=== PATIENT | male | born 1935 | race Caucasian/White ===

== ENCOUNTER 2018-10-19 07:33 | Day surgery (SDC) | payer OTHER ==
[2018-10-19] MEDS ORDERED: Ringers Lactate 1,000 ML IV ONE (08:03)
[2018-10-19] MEDS ORDERED: LIDOCAINE 1% MPF 5 ML VIAL ONE (09:20)
[2018-10-19] MEDS ORDERED: PROPOFOL 200 MG/20 ML VIAL IV ONE ×2 (09:20)
[2018-10-19] MEDS ORDERED: GLYCOPYRROLATE 0.2 MG/ML SYR ONE (09:20)
--- NOTE | 2018-10-19 09:56 | ENDO RPT ---
[address], [address] COLONOSCOPY PROCEDURE REPORT EXAM DATE: 10/19/2018 PATIENT NAME: Ricki Waterman MR #: [id number] BIRTHDATE: 1935 ATTENDING: Curtis Montes DR STATUS: outpatient FORENSIC INVESTIGATOR: Machelle Pryor RN, Josef Masterson [facility], and Sony Go RN INDICATIONS: The patient is a 82 yr old Male here for a colonoscopy due to history of colon cancer PROCEDURE PERFORMED: Colonoscopy with biopsy - cold polypectomy MEDICATIONS: Per Anesthesia. ESTIMATED BLOOD LOSS: None CONSENT: The patient understands the risks and benefits of the procedure and understands that these risks include, but are not limited to: sedation, allergic reaction, infection, perforation and/or bleeding. Alternative means of evaluation and treatment include, among others: physical exam, x-rays, and/or surgical intervention. The patient elects to proceed with this endoscopic procedure. DESCRIPTION OF PROCEDURE: During intra-op preparation period all mechanical medical equipment was checked for proper function. Hand hygiene and appropriate measures for infection prevention was taken. Procedure, possible complications, alternatives including, but not limited to possibility of bleeding, perforation, tear, infection, sepsis, need for surgery, need for blood transfusion, were explained to the patient. After the risks, benefits and alternatives of the procedure were thoroughly explained, Informed consent was verified, confirmed and timeout was successfully executed by the treatment team. The patient was placed in the left lateral position. A digital rectal exam was performed and revealed an enlarged prostate, A digital rectal exam was performed and revealed a nodule prostate, A digital rectal exam was performed and revealed a tender prostate, A digital rectal exam was performed and revealed increased firmness of the prostate, and A digital rectal exam was performed and revealed internal hemorrhoids. After appropriate level of anesthesia, the scope was passed. The EC-[id number] ([id number]) endoscope was introduced through the anus and advanced to the distal transverse colon / Small bowel anastamosis. There were 2 lumens consistent with a side to side anastamosis of the small bowel to colon with what appeared to be a blind pouch of small bowel, as well as blind pouch of residual colon on the opposite site consistent with an isoperistaltic anastamosis. The quality of the prep was fair. The instrument was then slowly withdrawn as the colon was fully examined. Scope withdrawal time was 15 minutes. COLON FINDINGS: A half circumferential ulcerated, firm and fungating mass with friable surfaces was found in the distal transverse colon, this was very concerning for recurrent neoplastic mass. Multiple biopsies of the area were performed using cold forceps. Ink was injected for tattoo purposes for surgical planning. Multiple medium sized small smooth and polypoid shaped pedunculated polyps were found in the sigmoid colon and rectum. A polypectomy was performed with a cold snare of the medium and small polypoid shaped polyps of the sigmoid and rectum. The resection was complete, the polyp tissue was completely retrieved and sent to histology. Extrinsic compression of rectal vault. Abnormal mucosa adjacent with prostate was noted. This area had a biopsy performed. The scope was then completely withdrawn from the patient and the procedure terminated. ADVERSE EVENTS: There were no complications. IMPRESSIONS: 1. Half circumferential mass was found in the distal transverse colon; multiple biopsies of the area were performed using cold forceps 2. Multiple medium sized small pedunculated polyps were found in the sigmoid colon and rectum; polypectomy was performed with a cold snare 3. Extrinsic Compression of Anorectum 4. Abnormal Mucosa of Anus RECOMMENDATIONS: 1. fiber rich diet 2. await biopsy results 3. avoid NSAIDS for 2 weeks 4. follow-up: office 2 week(s) 5. follow-up: primary MD 2 week(s) 6. Monitor for any evidence of rectal bleeding. 7. CT scan 8. hemorrhoidal hygiene 9. increase dietary water RECALL: Curtis Montes DR eSigned: Curtis Montes DR 10/19/2018 9:56 AM cc: CPT CODES: ICD9 CODES: PATIENT NAME: Ricki Waterman MR#: [id number]
[2018-10-19] MEDS ORDERED: HYDROCODONE/APAP 5/325 MG TAB ONE (11:14)
== END 2018-10-19 11:33 | disposition home or self-care (01) ==
LOC: OR 07:33
PROVIDERS: ATTEND Surgery
PROC: 3E0H8GC Introduction of Other Therapeutic Substance into Lower GI, Via Natural or Artificial Opening Endoscopic (ICD-10-PCS; 2018-10-19)
PROC: 0DBP8ZX Excision of Rectum, Via Natural or Artificial Opening Endoscopic, Diagnostic (ICD-10-PCS; 2018-10-19)
PROC: 0DBN8ZX Excision of Sigmoid Colon, Via Natural or Artificial Opening Endoscopic, Diagnostic (ICD-10-PCS; 2018-10-19)
PROC: 0DBL8ZX Excision of Transverse Colon, Via Natural or Artificial Opening Endoscopic, Diagnostic (ICD-10-PCS; principal; 2018-10-19 09:15)
DX: C18.4 Malignant neoplasm of transverse colon (principal); D12.5 Benign neoplasm of sigmoid colon; D12.8 Benign neoplasm of rectum; K64.8 Other hemorrhoids; N40.0 Benign prostatic hyperplasia without lower urinary tract symptoms; Z85.038 Personal history of other malignant neoplasm of large intestine; Z87.891 Personal history of nicotine dependence; Z88.6 Allergy status to analgesic agent; Z88.7 Allergy status to serum and vaccine; Z82.49 Family history of ischemic heart disease and other diseases of the circulatory system; Z80.0 Family history of malignant neoplasm of digestive organs
CPT/HCPCS: 88305 ×2; 45380; 45381; 45385; J2704 ×2

== ENCOUNTER 2019-02-01 05:04 | Emergency (ER) | payer OTHER ==
--- OUTSIDE RECORDS SUMMARY | 2019-02-01 05:07 | XMS REPORT | Clinical Summary ---
:1935 Author Organization [facility] Address [address] [place] [address] Care Team Providers Name Role Phone Asked, No Pcp Primary Care Provider Unavailable Allergies Active Allergy Reactions Severity Noted Date Comments Codeine 11/23/2018 " Per Pt. It makes me feel like I'm in another world. Tetanus Immune Globulin 11/23/2018 Swelling on area where was injected (arm) Medications Medication Sig Dispensed Refills Start Date End Date Status traMADol (ULTRAM) 50 Take 1 tablet (50 15 tablet 0 01/10/2019 01/17/2019 mg tablet mg total) by mouth every 6 (six) hours as needed for moderate pain for up to 7 days. 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) 01/07/2019 Telephone General Surgery Cyrus English MD 01/02/2019 Telephone General Surgery Cyrus English MD 01/02/2019 Telephone General Surgery Cyrus English MD 12/25/2018 Orders Only General Surgery Cyrus English MD 11/27/2018 Orders Only General Surgery Cyrus English MD 11/23/2018 Lab Lab Cyrus English MD 11/23/2018 Hospital Encounter Radiology Cyrus English Malignant neoplasm MD Neil of rectum (HCC) 11/23/2018 Office Visit General Surgery Cyrus English 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); MD Neil Rectal lesion; Benign prostatic hyperplasia with urinary obstruction; Family hx of colon cancer 11/23/2018 Orders Only General Surgery Cyrus English Malignant neoplasm MD Neil of rectum (HCC) (Primary Dx) after 01/31/2018 Family History Medical History Relation Name Comments Colon cancer Brother Relation Name Status Comments Brother Alive Social History Tobacco Use Types Packs/Day Years Used Date Never Smoker Smokeless Tobacco: Never Used Alcohol Use Drinks/Week oz/Week Comments Yes 1 Sex Assigned at Date Recorded Not on file Job Start Date Occupation Industry Not on file Not on file Not on file Travel History Travel Start Travel End No recent travel history available. Last Filed Vital Signs Vital Sign Reading Time Taken Comments Blood Pressure 173/85 01/10/2019 5:03 PM CDT Pulse 80 01/10/2019 5:03 PM CDT Temperature 36.4 C (97.6 F) 01/10/2019 10:23 AM CDT Respiratory Rate 19 01/10/2019 5:03 PM CDT Oxygen Saturation 95% 01/10/2019 5:03 PM CDT Inhaled Oxygen Concentration - - Weight 92.1 kg (203 lb) 11/23/2018 11:13 AM CDT Height 177.8 cm (5' 10") 01/10/2019 9:25 AM CDT Body Mass Index 28.31 11/23/2018 11:13 AM CDT Plan of Treatment Health Maintenance Due Date Last Done Comments SHINGLES VACCINES (#1) 12/01/1985 65+ PNEUMOCOCCAL VACCINE (1 of 2 - PCV13) 12/01/2000 INFLUENZA VACCINE 12/27/2018 Procedures Procedure Name Priority Date/Time Associated Comments Diagnosis LACTIC ACID LEVEL, Timed 01/10/2019 1:39 Results for this SEPSIS - NOW AND PM CDT procedure are in REPEAT 2X EVERY 3 the results HOURS section. URINALYSIS SCREEN AND Routine 01/10/2019 11:41 Results for this MICROSCOPY, WITH AM CDT procedure are in REFLEX TO CULTURE the results section. URINE CULTURE Routine 01/10/2019 11:41 Results for this AM CDT procedure are in the results section. AST (SGOT) STAT 01/10/2019 11:38 Results for this AM CDT procedure are in the results section. POTASSIUM LEVEL STAT 01/10/2019 11:38 Results for this AM CDT procedure are in the results section. CT RENAL STONE STAT 01/10/2019 10:45 Results for this PROTOCOL AM CDT procedure are in the results section. SMEAR REVIEW STAT 01/10/2019 10:17 Results for this AM CDT procedure are in the results section. ESTIMATED GFR STAT 01/10/2019 10:17 Results for this AM CDT procedure are in the results section. LIPASE LEVEL STAT 01/10/2019 10:17 Results for this AM CDT procedure are in the results section. LACTIC ACID LEVEL, STAT 01/10/2019 10:17 Results for this SEPSIS - NOW AND AM CDT procedure are in REPEAT 2X EVERY 3 the results HOURS section. COMPREHENSIVE STAT 01/10/2019 10:17 Results for this METABOLIC PANEL AM CDT procedure are in the results section. HC COMPLETE BLD COUNT STAT 01/10/2019 10:17 Results for this W/AUTO DIFF AM CDT procedure are in the results section. SURGICAL PATHOLOGY Routine 11/27/2018 REQUEST SURGICAL PATHOLOGY Routine 11/23/2018 5:24 Results for this REQUEST PM CDT procedure are in the results section. MRI PELVIS W WO STAT 11/23/2018 4:04 Malignant neoplasm Results for this CONTRAST PM CDT of rectum (HCC) procedure are in the results section. ESTIMATED GFR Routine 11/23/2018 2:47 Results for this PM CDT procedure are in the results section. POC CREATININE Routine 11/23/2018 2:47 Results for this PM CDT procedure are in the results section. after 01/31/2018 Results Lactic acid level, SEPSIS - Now and repeat 2x every 3 hours (01/10/2019 1:39 PM CDT)Only the most recent of2 resultswithin the time period is included. [facility] Lactic acid 1.4 0.5 - 2.2 mmol/L [facility] Specimen Blood Performing Organization Address City/State/Zipcode Phone Number [facility] DEPARTMENT OF PATHOLOGY AND [address] [place] [address] GENOMIC MEDICINE [place] [id number] [place] [address] Urinalysis screen and microscopy, with reflex to culture (01/10/2019 11:41 AM CDT) Specimen site Clean catch [facility] Color, UA Straw [facility] Appearance, UA Clear [facility] Specific gravity, UA 1.009 1.001 - 1.035 [facility] pH, UA 7.0 5.0 - 8.5 [facility] Protein, UA Negative Negative [facility] Glucose, UA Negative Negative [facility] Ketones, UA Negative Negative [facility] Bilirubin, UA Negative Negative [facility] Blood, UA Negative Negative [facility] Nitrite, UA Negative Negative [facility] Urobilinogen, UA <2.0 <2.0 [facility] Leukocyte esterase, Negative Negative [facility] Epithelial cells, UA <1 /HPF [facility] WBC, UA 1 0 - 1 /HPF [facility] RBC, UA 5 0 - 5 /HPF [facility] Bacteria, UA None seen None seen [facility] Yeast, UA None seen [facility] Yeast with None seen [facility] pseudohyphae, [facility] Hyaline casts, UA 1 /LPF [facility] Specimen Urine Performing Organization Address City/[facility] Phone Number [facility] DEPARTMENT OF PATHOLOGY AND [address] [place] [phone] Urine culture (01/10/2019 11:41 AM CDT) Urine culture SEE COMMENTComment: [facility] Bacteriuria screen HOSPITAL negative. Specimen Performing Organization Address [facility] Phone Number [facility] DEPARTMENT OF PATHOLOGY AND [address] [place] [phone] AST (SGOT) (01/10/2019 11:38 AM CDT) AST 24 10 - 50 U/L [facility] Specimen Plasma specimen Performing Organization Address City/[facility] Phone Number [facility] DEPARTMENT OF PATHOLOGY AND [address] [place] [phone] Potassium level (01/10/2019 11:38 AM CDT) Potassium 4.1 3.5 - 5.0 mEq/L [facility] Specimen Plasma specimen Performing Organization Address City/State/Zipcode Phone Number [facility] DEPARTMENT OF PATHOLOGY AND [address] [place] [address] GENOMIC MEDICINE [facility] [address] [place] [address] CT Renal Stone Protocol (01/10/2019 10:45 AM CDT) Specimen Narrative Performed At EXAMINATION:CT RENAL STONE PROTOCOL [facility] CLINICAL HISTORY:bladder mass r o bowel obs or hydro TECHNIQUE: Multiple axial images of the abdomen and pelvis were obtained without intravenous administration of iodinated contrast. Sagittal and coronal computerized reformatted images were also obtained. The lack of intravenous contrast reduces the sensitivity of detecting solid organ disease. CT imaging was performed with iterative reconstruction techniques and/or automated exposure control to reduce radiation dose. COMPARISON:Pelvic MRI 11/23/2018 FINDINGS: 1.Prostate neoplasm spreading along the posterior left posterior lateral bladder wall wall is redemonstrated. Tumor abuts the anterior margin of the low rectum, with a 2.6 cm soft tissue nodular implants seen for example on image 155. Multiple perirectal/mesorectal nodular implants are seen for example on image 137. These are similar to previous. 2.There are abnormal bilateral external iliac lymph nodes, for example 2.9 x 1.8 cm on image 137 on the right. An abnormal right superficial inguinal lymph node with perinodal stranding measuring 17 x 15 mm on image 169 is present. There are borderline to mildly prominent bilateral common iliac and lower periaortic lymph nodes as well, for example 15 x 10 mm on image 89, which are suspicious though not definitive. 3.There is no hydronephrosis. There is diffuse bladder wall thickening and trabeculation consistent with sequela of chronic outlet obstruction. The unenhanced kidneys are unremarkable. 4.A 1.5 cm subcapsular hypodensity in the posterior right hepatic lobe is consistent with a cyst. There are a few additional subcentimeter hypodensities (images 24, 38) which are indeterminate. Abdominal MRI may be helpful. 5.The unenhanced spleen, pancreas, gallbladder, and adrenals are unremarkable. 6.There is no bowel obstruction or inflammation. Clustered metallic densities are seen in the small bowel in the anterior midabdomen, can be correlated for ingested foreign bodies individually, the densities are sub-5 mm, although the total cluster is approximately 3 cm. 7.There is an indeterminate 1 cm nodule in the right lower lobe (image 20). 8.The lesser trochanter lesion is very subtle on CT. No other suspicious skeletal lesion is seen.. IMPRESSION: 1.Left bladder wall thickening contiguous with the prostate gland neoplasm with pelvic and lower retroperitoneal lymphadenopathy consistent with known prostate malignancy. Subtle left femoral lesser trochanter lesion consistent with metastatic disease. 2.Indeterminate small liver lesions. Recommend abdominal MRI. 3.Indeterminate 1 cm right lower lobe pulmonary nodule. Recommend chest CT. 4.No bowel obstruction or urinary tract obstruction. 5.Punctate metallic densities in small bowel as discussed above, possibly ingested foreign bodies. Please correlate with history. [facility]-[id number] Procedure Note [facility], Radiology Results Incoming - 01/10/2019 2:26 PM CDT EXAMINATION: CT RENAL STONE PROTOCOL CLINICAL HISTORY: bladder mass r o bowel obs or hydro TECHNIQUE: Multiple axial images of the abdomen and pelvis were obtained without intravenous administration of iodinated contrast. Sagittal and coronal computerized reformatted images were also obtained. The lack of intravenous contrast reduces the sensitivity of detecting solid organ disease. CT imaging was performed with iterative reconstruction techniques and/or automated exposure control to reduce radiation dose. COMPARISON: Pelvic MRI 11/23/2018 FINDINGS: 1. Prostate neoplasm spreading along the posterior left posterior lateral bladder wall wall is redemonstrated. Tumor abuts the anterior margin of the low rectum, with a 2.6 cm soft tissue nodular implants seen for example on image 155. Multiple perirectal/mesorectal nodular implants are seen for example on image 137. These are similar to previous. 2. There are abnormal bilateral external iliac lymph nodes, for example 2.9 x 1.8 cm on image 137 on the right. An abnormal right superficial inguinal lymph node with perinodal stranding measuring 17 x 15 mm on image 169 is present. There are borderline to mildly prominent bilateral common iliac and lower periaortic lymph nodes as well, for example 15 x 10 mm on image 89, which are suspicious though not definitive. 3. There is no hydronephrosis. There is diffuse bladder wall thickening and trabeculation consistent with sequela of chronic outlet obstruction. The unenhanced kidneys are unremarkable. 4. A 1.5 cm subcapsular hypodensity in the posterior right hepatic lobe is consistent with a cyst. There are a few additional subcentimeter hypodensities ( images 24, 38) which are indeterminate. Abdominal MRI may be helpful. 5. The unenhanced spleen, pancreas, gallbladder, and adrenals are unremarkable. 6. There is no bowel obstruction or inflammation. Clustered metallic densities are seen in the small bowel in the anterior midabdomen, can be correlated for ingested foreign bodies individually, the densities are sub-5 mm, although the total cluster is approximately 3 cm. 7. There is an indeterminate 1 cm nodule in the right lower lobe (image 20). 8. The lesser trochanter lesion is very subtle on CT. No other suspicious skeletal lesion is seen.. IMPRESSION: 1. Left bladder wall thickening contiguous with the prostate gland neoplasm with pelvic and lower retroperitoneal lymphadenopathy consistent with known prostate malignancy. Subtle left femoral lesser trochanter lesion consistent with metastatic disease. 2. Indeterminate small liver lesions. Recommend abdominal MRI. 3. Indeterminate 1 cm right lower lobe pulmonary nodule. Recommend chest CT. 4. No bowel obstruction or urinary tract obstruction. 5. Punctate metallic densities in small bowel as discussed above, possibly ingested foreign bodies. Please correlate with history. [facility]-[id number] Performing Organization Address City/[facility]/Zipcode Phone Number [facility] [address] [place] [phone] Smear review (01/10/2019 10:17 AM CDT) Platelet slide review Jason adequate [facility] Ovalocytes Moderate [facility] Specimen Performing Organization Address City/[facility]/Zipcode Phone Number [facility] DEPARTMENT OF PATHOLOGY AND [address] [place] [address] GENOMIC MEDICINE [address] [address] Estimated GFR (01/10/2019 10:17 AM CDT)Only the most recent of2 resultswithin the time period is included. Estimated GFR 85 mL/min/1.73 [facility] Comment: m2 HOSPITAL CatergoryUnitsInterpretation G1 >=90 Normal or high G2 60-89Mildly decreased [id number] to moderately decreased [id number] to severely decreased G4 15-29Severely decreased G5 <15Kidney failure The eGFR was calculated using the Chronic Kidney Disease Epidemiology Collaboration (CKD-EPI) equation. Interpretation is based on recommendations of the National Kidney Foundation-Kidney Disease Outcomes Quality Initiative (NKF-KDOQI) published in 2014. Specimen Plasma specimen Performing Organization Address City/[facility]/Zipcode Phone Number [facility] DEPARTMENT OF PATHOLOGY AND [address] [place] [address] [phone] [address] CBC with platelet and differential (01/10/2019 10:17 AM CDT) WBC 6.41 4.50 - 11.00 [facility] k/uL HOSPITAL RBC 4.15 (L) 4.40 - 6.00 [facility] m/uL HOSPITAL HGB 12.8 (L) 14.0 - 18.0 [facility] g/dL HOSPITAL HCT 38.9 (L) 41.0 - 51.0 % [facility] MCV 93.7 82.0 - 100.0 [facility] MCH 30.8 27.0 - 34.0 pg [facility] MCHC 32.9 31.0 - 37.0 [facility] gdL [facility] RDW - SD 44.5 37.0 - 55.0 fL [facility] MPV 10.8 8.8 - 13.2 fL [facility] Platelet count 173 150 - 400 k/uL [facility] Nucleated RBC 0.00 /100 WBC [facility] Neutrophils 69.4 (H) 39.0 - 69.0 % [facility] Lymphocytes 16.5 (L) 25.0 - 45.0 % [facility] Monocytes 10.0 0.0 - 10.0 % [facility] Eosinophils 3.1 0.0 - 5.0 % [facility] Basophils 0.5 0.0 - 1.0 % [facility] Immature granulocytes 0.5Comment: 0.0 - 1.0 % [facility] "Immature HOSPITAL granulocytes" (promyelocytes , myelocytes, metamyelocytes ) Specimen Blood Performing Organization Address City/State/Zipcode Phone Number [facility] DEPARTMENT OF PATHOLOGY AND [address] [place] [phone] [address] Lipase level (01/10/2019 10:17 AM CDT) Lipase 17 13 - 60 U/L [facility] Specimen Plasma specimen Performing Organization Address City/State/Zipcode Phone Number [facility] DEPARTMENT OF PATHOLOGY AND [address] [place] [phone] [address] Comprehensive metabolic panel (01/10/2019 10:17 AM CDT) Sodium 138 135 - 148 [facility] mEq/L [facility] Potassium Footnote 3.5 - 5.0 [facility] Comment: mEq/L HOSPITAL Unable to perform testing, specimen is HEMOLYZED.Recollect requested for K, AST. REVISED REPORT, Previously reported as: Unable to perform testing, specimen is HEMOLYZED.Recollect requested for K, AST. (Reported 01/10/2019 11:17) Chloride 98 98 - 112 [facility] mEq/L [facility] CO2 25 24 - 31 mEq/L [facility] Anion gap 15@ANIO 7 - 15 mEq/L [facility] BUN 9 8 - 23 mg/dL [facility] Creatinine 0.74 0.70 - 1.20 [facility] mg/dL [facility] Glucose 118 (H) 65 - 99 mg/dL [facility] Calcium 9.2 8.8 - 10.2 [facility] mg/dL [facility] Protein 7.3 6.3 - 8.3 [facility] Comment: g/dL [facility] [place] 4.6-7.0 g/dL 1 week 4.4-7.6 g/dL 7 months-1year5.1-7.3 g/dL 1-2 years5.6-7.5 g/dL >3 years6.0-8.0 g/dL 18-150 6.3-8.3 g/dL Albumin 3.5 3.5 - 5.0 [facility] g/dL [facility] A/G ratio 0.9 0.7 - 3.8 [facility] Alkaline 74 40 - 129 U/L [facility] AST Footnote 10 - 50 U/L [facility] ALT 22 5 - 50 U/L [facility] Total bilirubin 0.6 0.0 - 1.2 [facility] mg/dL HOSPITAL Specimen Plasma specimen Narrative Performed At Unable to perform testing, specimen is [facility] DEPARTMENT OF PATHOLOGY AND GENOMIC HEMOLYZED.Recollect MEDICINE requested for K, AST. PIERCE MCALLISTER RN/ANTHONY notified by RGM at01/10/201911:38. Performing Organization Address City/State/Zipcode Phone Number [facility] DEPARTMENT OF PATHOLOGY AND [address] [place] [address] GENOMIC MEDICINE [facility] [address] [place] [address] Surgical pathology request (11/27/2018)Only the most recent of2 resultswithin the time period is included. Specimen Tissue Narrative Performed At MRI Pelvis W Wo Contrast (11/23/2018 4:04 PM CDT) Specimen Narrative Performed At EXAMINATION:MRI PELVIS W WO CONTRAST HM [facility] CLINICAL HISTORY:82 years Male C20 Malignant neoplasm of rectum, rectal cancer TECHNIQUE: Multiplanar multisequence MR images of the pelvis were obtained pre - and post intravenous administration of gadolinium based contrast material. COMPARISON: None. IMPRESSION: Lymphovascular:There is metastatic mesorectal adenopathy (up to 1.9 cm), as well as bilateral external iliac (up to 13 mm) and right inguinal adenopathy (up to 15 mm).Right lateral sacral node measures 9 mm are also likely metastatic. Reproductive organs: Patient is status post transurethral resection of the prostate. There is diffuse T2 hypointensity and diffusion restriction throughout the residual prostate gland, compatible with p rimary tumor, and with circumferential extracapsular extension and bilateral seminal vesicle invasion, along withbladder invasion (particularly along the left base, series 7 image 12).Posteriorly, there is extension through Denonvilliers' fascia into the mesoectum, and with invasion of the lower rectum just above the anorectal junction. Bladder: Urinary bladder is diffusely trabeculated related to chronic outlet obstruction. Other:None. Musculoskeletal: 2 cm osseous metastatic disease involving the left lesser trochanter of the femur. Thickening and enhancement of left S2 and S3 nerve roots, likely related to perineural spread of tumor. SUMMARY: 1.Locally advanced and metastatic prostate cancer, as described above. There is bladder and rectal invasion as well as metastatic pelvic adenopathy and perineural spread along S2 and S3 nerve roots on the left. 2.Osseous metastatic disease involving the left lesser trochanter. Consider bone scan for more complete skeletal evaluation. [id number] Procedure Note Hm Interface, Radiology Results Incoming - 11/23/2018 7:03 PM CDT EXAMINATION: MRI PELVIS W WO CONTRAST CLINICAL HISTORY:82 years Male C20 Malignant neoplasm of rectum, rectal cancer TECHNIQUE: Multiplanar multisequence MR images of the pelvis were obtained pre - and post intravenous administration of gadolinium based contrast material. COMPARISON: None. IMPRESSION: Lymphovascular: There is metastatic mesorectal adenopathy (up to 1.9 cm), as well as bilateral external iliac (up to 13 mm) and right inguinal adenopathy ( up to 15 mm). Right lateral sacral node measures 9 mm are also likely metastatic. Reproductive organs: Patient is status post transurethral resection of the prostate. There is diffuse T2 hypointensity and diffusion restriction throughout the residual prostate gland, compatible with primary tumor, and with circumferential extracapsular extension and bilateral seminal vesicle invasion, along with bladder invasion (particularly along the left base, series 7 image 12). Posteriorly, there is extension through Denonvilliers' fascia into the mesoectum, and with invasion of the lower rectum just above the anorectal junction. Bladder: Urinary bladder is diffusely trabeculated related to chronic outlet obstruction. Other: None. Musculoskeletal: 2 cm osseous metastatic disease involving the left lesser trochanter of the femur. Thickening and enhancement of left S2 and S3 nerve roots, likely related to perineural spread of tumor. SUMMARY: 1. Locally advanced and metastatic prostate cancer, as described above. There is bladder and rectal invasion as well as metastatic pelvic adenopathy and perineural spread along S2 and S3 nerve roots on the left. 2. Osseous metastatic disease involving the left lesser trochanter. Consider bone scan for more complete skeletal evaluation. [id number] Performing Organization Address City/[facility]/Zipcode Phone Number [facility] [address] [place] [address] POC creatinine (11/23/2018 2:47 PM CDT) POC creatinine 0.7 0.7 - 1.2 [facility] Comment: mg/dl HOSPITAL Meter ID: [id number] Expressive Therapist: Margarette Le Specimen Blood Performing Organization Address City/State/Zipcode Phone Number [facility] DEPARTMENT OF PATHOLOGY AND [address] [place] [address] GENOMIC MEDICINE [address] [address] after 01/31/2018 Insurance Payer Benefit Plan / Subscriber ID Effective Dates Phone Address Type Group [employer] MEDICARE HU[employer]NA MEDICARE xxxxxxxxx 2018-Present PPO PPO/PFFS/ERS MCR Advance Directives For more information, please contact: [phone] Type Date Recorded Patient Family Practice Nurse Practitioner Explanation Advance Directives, Living Will and Medical Power of Program Arranger
--- OUTSIDE RECORDS SUMMARY | 2019-02-01 05:07 | XMS REPORT ---
:1935 [facility] Address [address] [place] [address] Dr. Bose [address] [place] [id number] Care Team Providers Name Role Phone Unavailable Unavailable Unavailable Problems This patient has no known problems. Allergies, Adverse Reactions, Alerts This patient has no known allergies or adverse reactions. Medications This patient has no known medications.
--- NOTE | 2019-02-01 06:33 | ER ---
Nurse's Notes [facility] Name: Ricki Waterman Age: 83 yrs Sex: Male : 1935 Arrival Date: 02/01/2019 Time: 05:06 Bed 7 Private MD: Diagnosis: Traumatic subdural hemorrhage Presentation: 02/01 05:10 Presenting complaint: EMS states: "This was the second time he called us out tonight. jd3 he had fallen earlier in the morning and he refused the first transfer. the second time he agreed to come to the ER because his head started hurting. he denied any LOC and he is not on any blood thinners.". Transition of care: patient was not received from another setting of care. Onset of symptoms was February 01, 2019. Risk Assessment: Do you want to hurt yourself or someone else? Patient reports no desire to harm self or others. Initial Sepsis Screen: Does the patient meet any 2 criteria? No. Patient's initial sepsis screen is negative. Does the patient have a suspected source of infection? No. Patient's initial sepsis screen is negative. Care prior to arrival: None. 05:10 Method Of Arrival: [facility] jd3 05:10 Acuity: [facility] 3 jd3 Historical: - Allergies: 05:15 Codeine; jd3 05:15 Tetanus Vaccines \\T\\ Toxoid; jd3 - Home Meds: 05:15 hydrocodone [Active]; Tramadol Oral [Active]; Fentanyl Patch Topical [Active]; jd3 - PMHx: 05:15 colon cancer; prostate cancer; jd3 - PSHx: 05:15 abdominal; neck; jd3 - Immunization history:: Adult Immunizations unknown. - Social history:: Smoking status: unknown. - Ebola Screening: : Patient negative for fever greater than or equal to 101.5 degrees Fahrenheit, and additional compatible Ebola Virus Disease symptoms. Screenin:21 Abuse screen: Denies threats or abuse. Nutritional screening: Nutritional screening: No jd3 deficits noted. Tuberculosis screening: No symptoms or risk factors identified. Fall Risk Ambulatory Aid- None/Bed Rest/Nurse Assist (0 pts). Gait- Normal/Bed Rest/Wheelchair (0 pts) Mental Status- Oriented to own ability (0 pts). Total Orozco Fall Scale indicates No Risk (0-24 pts). Assessment: 05:16 General: Appears in no apparent distress. uncomfortable, Behavior is calm, cooperative, jd3 appropriate for age. Pain: Complains of pain in head Quality of pain is described as aching, pressure. Neuro: Level of Consciousness is awake, alert, obeys commands, Oriented to person, place, time, situation, Manager Assessment are equal bilaterally Moves all extremities. Full function Speech is normal, Facial symmetry appears normal, Reports numbness in left index finger Denies weakness blurred vision dizziness, diplopia. Cardiovascular: Capillary refill < 3 seconds Patient's skin is warm and dry. Respiratory: Airway is patent Respiratory effort is even, unlabored, Respiratory pattern is regular, symmetrical, Denies cough, shortness of breath at rest. GI: No signs and/or symptoms were reported involving the gastrointestinal system. : No signs and/or symptoms were reported regarding the genitourinary system. EENT: No signs and/or symptoms were reported regarding the EENT system. Derm: Skin is intact, Skin is dry, Skin is normal, Skin temperature is warm laceration about 2.5-3 cm noted to forehead. with small amount of bleeding. Musculoskeletal: Circulation, motion, and sensation intact. Range of motion: intact in all extremities. 06:05 Reassessment: Patient appears in no apparent distress at this time. Patient and/or jd3 family updated on plan of care and expected duration. Pain level reassessed. Patient is alert, oriented x 3, equal unlabored respirations, skin warm/dry/pink. ot back form CT scan, awaiting results. 06:53 Reassessment: pt reported that he self caths himself to urinate. provider notified and jd3 order for a Forely catheter received. 08:09 Reassessment: Patient appears in no apparent distress at this time. No changes from jl7 previously documented assessment. Patient and/or family updated on plan of care and expected duration. Pain level reassessed. Patient is alert, oriented x 3, equal unlabored respirations, skin warm/dry/pink. Vital Signs: 05:15 BP 166 / 90; Pulse 96; Resp 18 S; Temp 98.4(O); Pulse Ox 97% on R/A; Weight 92.99 kg jd3 (R); Height 5 ft. 10 in. (177.80 cm) (R); Pain 10/10; 06:05 BP 165 / 79; Pulse 82; Resp 17 S; Pulse Ox 96% on R/A; jd3 07:00 BP 160 / 80; Pulse 83; Resp 16 S; Pulse Ox 100% on R/A; jl7 09:00 BP 163 / 81; Pulse 81; Resp 16 S; Pulse Ox 100% on R/A; jl7 05:15 Body Mass Index 29.41 (92.99 kg, 177.80 cm) jd3 ED Course: 05:06 Patient arrived in ED. ak1 05:07 Jamel Golden MD is Attending Physician. kdr 05:09 Sly Reynoso, RN is Primary Nurse. jd3 05:13 Triage completed. jd3 05:16 Arm band placed on. jd3 05:22 Patient has correct armband on for positive identification. Placed in gown. Bed in low jd3 position. Call light in reach. Side rails up X2. Adult w/ patient. 06:09 CT completed. Patient tolerated procedure well. Patient moved to CT via stretcher. Patient moved back from CT. 06:46 CT Head C Spine In Process Unspecified. EDMS 06:55 Noe cath inserted, using sterile technique, 16 Fr., by me, balloon inflated, to jd3 gravity drainage. 07:05 Missed attempt(s): 22 gauge in right forearm. Bleeding controlled, band aid applied, oe catheter tip intact. 07:07 Report given to Maday MARSH. jd3 07:14 Missed attempt(s): 22 gauge in left forearm. Bleeding controlled, band aid applied, oe catheter tip intact. 07:20 Initial lab(s) drawn, by me, sent to lab. Inserted saline lock: 22 gauge in right jl7 antecubital area, using aseptic technique. Blood collected. 07:56 Maday Bradley, RN is Primary Nurse. jl7 08:09 No provider procedures requiring assistance completed. Patient transferred, IV remains jl7 in place. intact, No redness/swelling at site. Administered Medications: No medications were administered Outcome: 06:31 ER care complete, transfer ordered by . kdr 09:35 Transferred by ground EMS to [facility], Transfer form completed. jl7 09:35 Condition: stable 09:35 Discharge instructions given to patient, Instructed on the need for transfer, Demonstrated understanding of instructions. 09:36 Patient left the ED. jl7 Signatures: Dispatcher [employer] EDMS Jamel Golden MD MD kdr Hagler, Ervin eh Krenek, Amber RN RN ak1 Gavin Yip Jahala, RN RN jl7 Sly Reynoso RN RN jd3 Corrections: (The following items were deleted from the chart) 05:21 05:16 Neuro: Level of Consciousness is awake, alert, obeys commands, Oriented to jd3 person, place, time, situation, Moves all extremities. Full function Speech is normal, Facial symmetry appears normal, Reports numbness in left index finger Denies weakness blurred vision dizziness, diplopia, jd3 07:15 07:13 Missed attempt(s): 22 gauge in right forearm. Bleeding controlled, band aid oe applied, catheter tip intact. oe
--- NOTE | 2019-02-01 06:34 | EDPHYS ---
Physician Documentation [facility] Name: Ricki Waterman Age: 83 yrs Sex: Male : 1935 Arrival Date: 02/01/2019 Time: 05:06 Bed 7 Private MD: ED Physician Jamel Golden HPI: 02/01 05:22 This 83 yrs old Male presents to ER via EMS with complaints of head injury. kdr 05:22 The patient or guardian reports abrasion, a laceration, clean, irregular, pain, kdr swelling, tenderness. The complaints affect the left side of forehead. Context of injury: The problem was sustained at home, resulted from a fall, from a standing position. Onset: The symptoms/episode began/occurred acutely, suddenly, 2 hour(s) ago. Associated signs and symptoms: Loss of consciousness: This patient did not experience any loss of consciousness. Pertinent positives: injury, Pertinent negatives: biting tongue, dazed, double vision, incontinence, nausea, neck pain, seizure, shortness of breath, tinnitus, vomiting, weakness in extremities, generalized weakness. Severity of symptoms: At their worst the symptoms were mild, in the emergency department the symptoms are unchanged. The patient has not experienced similar symptoms in the past. The patient has been recently seen by a physician: the patient's primary care provider. 05:22 The patient states that he lost his balance and fell backward hitting the floor. He kdr denies LOC. States that he is on several pain medications including a new pain patch which he feels contributed to his current situation and loss of balance. Historical: - Allergies: 05:15 Codeine; jd3 05:15 Tetanus Vaccines \T\ Toxoid; jd3 - Home Meds: 05:15 hydrocodone [Active]; Tramadol Oral [Active]; Fentanyl Patch Topical [Active]; jd3 - PMHx: 05:15 colon cancer; prostate cancer; jd3 - PSHx: 05:15 abdominal; neck; jd3 - Immunization history:: Adult Immunizations unknown. - Social history:: Smoking status: unknown. - Ebola Screening: : Patient negative for fever greater than or equal to 101.5 degrees Fahrenheit, and additional compatible Ebola Virus Disease symptoms. ROS: 05:22 Constitutional: Negative for fever, chills, and weight loss, Eyes: Negative for injury, kdr pain, redness, and discharge, ENT: Negative for injury, pain, and discharge, Neck: Negative for injury, pain, and swelling, Cardiovascular: Negative for chest pain, palpitations, and edema, Respiratory: Negative for shortness of breath, cough, wheezing, and pleuritic chest pain, Abdomen/GI: Negative for abdominal pain, nausea, vomiting, diarrhea, and constipation, Back: Negative for injury and pain, : Negative for injury, bleeding, discharge, and swelling, MS/Extremity: Negative for injury and deformity, Skin: Negative for rash, and discoloration - he has a moderate hematoma on the left forehead with a irregular laceration Neuro: Negative for headache, weakness, numbness, tingling, and seizure activity. Psych: Negative for depression, anxiety, suicide ideation, homicidal ideation, and hallucinations, Allergy/Immunology: Negative for hives, rash, and allergies, Endocrine: Negative for neck swelling, polydipsia, polyuria, polyphagia, and marked weight changes, Hematologic/Lymphatic: Negative for swollen nodes, abnormal bleeding, and unusual bruising. Exam: 05:28 Constitutional: This is a well developed, well nourished patient who is awake, alert, kdr and in no acute distress. Head/Face: The patient has a 3 cm puja hemaotma to the right frontal parietal area with a laceartion Eyes: Pupils equal round and reactive to light, extra-ocular motions intact. Lids and lashes normal. Conjunctiva and sclera are non-icteric and not injected. Cornea within normal limits. Periorbital areas with no swelling, redness, or edema. Neck: Trachea midline, no thyromegaly or masses palpated, and no cervical lymphadenopathy. Supple, full range of motion without nuchal rigidity, or vertebral point tenderness. No Meningismus. Chest/axilla: Normal chest wall appearance and motion. Nontender with no deformity. No lesions are appreciated. Cardiovascular: Regular rate and rhythm with a normal S1 and S2. No gallops, murmurs, or rubs. Normal PMI, no JVD. No pulse deficits. Respiratory: Lungs have equal breath sounds bilaterally, clear to auscultation and percussion. No rales, rhonchi or wheezes noted. No increased work of breathing, no retractions or nasal flaring. Abdomen/GI: Soft, non-tender, with normal bowel sounds. No distension or tympany. No guarding or rebound. No evidence of tenderness throughout. Back: No spinal tenderness. No costovertebral tenderness. Full range of motion. Skin: Warm, dry with normal turgor. Normal color with no rashes, no lesions, and no evidence of cellulitis. MS/ Extremity: Pulses equal, no cyanosis. Neurovascular intact. Full, normal range of motion. Neuro: Awake and alert, GCS 15, oriented to person, place, time, and situation. Cranial nerves II-XII grossly intact. Motor strength 5/5 in all extremities. Sensory grossly intact. Cerebellar exam normal. Normal gait. Psych: Awake, alert, with orientation to person, place and time. Behavior, mood, and affect are within normal limits. Vital Signs: 05:15 BP 166 / 90; Pulse 96; Resp 18 S; Temp 98.4(O); Pulse Ox 97% on R/A; Weight 92.99 kg jd3 (R); Height 5 ft. 10 in. (177.80 cm) (R); Pain 10/10; 06:05 BP 165 / 79; Pulse 82; Resp 17 S; Pulse Ox 96% on R/A; jd3 07:00 BP 160 / 80; Pulse 83; Resp 16 S; Pulse Ox 100% on R/A; jl7 09:00 BP 163 / 81; Pulse 81; Resp 16 S; Pulse Ox 100% on R/A; jl7 05:15 Body Mass Index 29.41 (92.99 kg, 177.80 cm) jd3 MDM: 06:31 Patient medically screened. kdr 06:31 Data reviewed: vital signs, nurses notes, lab test result(s), radiologic studies. kdr Counseling: I had a detailed discussion with the patient and/or guardian regarding: the historical points, exam findings, and any diagnostic results supporting the discharge/admit diagnosis, lab results, radiology results, the need to transfer to another facility. 02/01 06:28 Order name: CBC with Diff kdr 02/01 06:28 Order name: Chem 7 kdr 02/01 05:20 Order name: CT Head C Spine kdr 02/01 06:28 Order name: PT-INR kdr 02/01 06:43 Order name: Kusum; Complete Time: 06:56 jd3 Administered Medications: No medications were administered Disposition: 02/01/19 06:[address] [facility]. Diagnosis is Traumatic subdural hemorrhage. - Reason for transfer: Higher level of care. - Accepting physician is Dr. Rodriguez. - Condition is Fair. - Problem is new. - Symptoms are unchanged. Signatures: Dispatcher [employer] EDMS Jamel Golden MD MD kdr Maday Bradley RN RN jl7 Sly Reynoso RN RN jd3 Corrections: (The following items were deleted from the chart) 07:14 06:31 02/01/2019 06:[address] [facility]. kdr Diagnosis is Traumatic subdural hemorrhage. Reason for transfer: Higher level of care. Accepting physician is Yariel Baez. Condition is Fair. Problem is new. Symptoms are unchanged. kdr 09:36 07:14 02/01/2019 06:[address] [facility]. jl7 Diagnosis is Traumatic subdural hemorrhage. Reason for transfer: Higher level of care. Accepting physician is Dr. Rodriguez. Condition is Fair. Problem is new. Symptoms are unchanged. kdr
[2019-02-01 07:32] LABS: Basophils % 0.4 % (0-1.3); Hematocrit 36.5 % (39.6-49.0); Lymphocytes % 11.6 % (15.3-44.8); RBC Red Blood Cell Count 4.04 M/uL (4.33-5.43)
[2019-02-01 07:36] LABS: Protime INR 1.01
[2019-02-01 07:54] LABS: BUN Blood Urea Nitrogen 14 mg/dL (7-18); Bicarbonate 28 mmol/L (21-32); Glucose Level 103 mg/dL (74-106); Potassium 3.9 mmol/L (3.5-5.1); Sodium Level 139 mmol/L (136-145)
--- NOTE | 2019-02-01 10:00 | RAD REPORT ---
EXAM DESCRIPTION: CT - [id number] - 02/01/2019 6:45 am CLINICAL HISTORY: 83-year-old male with left arm and hand numbness and tingling, patient fell yester day morning and has laceration above left eye TECHNIQUE: Multiple axial CT images of the brain and cervical spine were performed followed by sagit vivi and coronal reconstructed images. The CT study is performed according to ALARA (as low as reasona scarlett achievable) or ALARA/IMAGE GENTLY, with automatic adjustment of mA and/or kV according to patient size. Performed on: 02/01/2019 at 5:51 AM COMPARISON: None. FINDINGS: CT HEAD: There is an extra-axial hyperdense fluid collection over the left frontotemporal convexity a subdural hematoma. This measures 1 cm in maximum diameter. No additional intracranial hemorrhage is identifie d. There is local mass effect without evidence of midline shift. The cerebral sulci and ventricles are prominent consistent with age-related atrophy. There is very mild periventricular and subcortical low attenuation likely related to mild chronic derek roangiopathy. There is mild mucosal thickening of the ethmoid sinuses. The mastoid air cells are clear. The orbital contents are grossly unremarkable. No acute osseous abnormalities are identified. There is left frontal scalp soft tissue swelling. CT CERVICAL SPINE: The cervical vertebrae are normal in height. There is straightening of the normal cervical lordosis. There are remote postsurgical changes consistent with anterior fusion of C5-C7. There is no evidence to suggest hardware failure. There is mild degenerative disc disease throughout the cervical spine ab ove and below the level of fusion. There is normal alignment of the facet joints. There does appear t o be partial fusion of the right C2-C3 facet joints and left C2-C6 facet joints. There also appears t o be fusion of the left C7-T1 facet joints. Bone mineralization is slightly diminished. The atlanto-axial articulation is preserved and the odo ntoid process is intact. There is irregularity of the inferomedial aspect of the right occipital condyle which may be chronic in nature. An acute nondisplaced fracture is not entirely excluded. There is no significant canal ry nosis. There is left C3-C4 neural foraminal stenosis secondary to uncovertebral joint and facet nydia nt hypertrophy. The paravertebral and paraspinal soft tissues are unremarkable. The lung apices are clear. IMPRESSION: 1. Subdural hematoma over the left frontal temporal convexity measuring approximately 1 cm in maximum dimension without evidence of midline shift. No calvarial fracture is identified. 2. Mild age-related atrophy and mild chronic microangiopathy. 3. Mild left frontal scalp soft tissue swelling. 4. Irregularity along the inferomedial aspect of the right occipital condyle which may be chronic in nature. An acute nondisplaced fracture is not entirely excluded. 5. Straightening of the normal cervical lordosis with degenerative changes as described above. 6. 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 These critical findings were discussed with Dr. Golden on 02/01/2019 at 6:28 AM central time Electronically signed by: Ludy Torres DO 02/01/2019 6:33 AM CDT Due to temporary technical issues with the PACS/Fluency reporting system, reports are being signed by the in house radiologist as a courtesy to ensure prompt reporting. The interpreting radiologist is f ully responsible for the content of the report.
== END 2019-02-01 09:36 | disposition short-term general hospital (02) ==
LOC: ER 05:04
PROC: 0T9B70Z Drainage of Bladder with Drainage Device, Via Natural or Artificial Opening (ICD-10-PCS; principal; 2019-02-01)
DX: S06.5X0A Traumatic subdural hemorrhage without loss of consciousness, initial encounter (principal); W18.30XA Fall on same level, unspecified, initial encounter; Y93.9 Activity, unspecified; Y92.009 Unspecified place in unspecified non-institutional (private) residence as the place of occurrence of the external cause; Z88.6 Allergy status to analgesic agent; Z88.7 Allergy status to serum and vaccine; Z85.038 Personal history of other malignant neoplasm of large intestine; Z85.46 Personal history of malignant neoplasm of prostate
CPT/HCPCS: 36415; 51702; 70450; 72125; 80048; 85025; 85610; 99285

== ENCOUNTER 2019-03-24 10:40 | Emergency (ER) | payer OTHER ==
--- NOTE | 2019-03-24 12:55 | EDPHYS ---
Physician Documentation [facility] Name: Ricki Waterman Age: 83 yrs Sex: Male : 1935 Arrival Date: 03/24/2019 Time: 10:43 Bed 18 Private MD: ED Physician Timothy Segal HPI: 03/24 11:06 This 83 yrs old Male presents to ER via Wheelchair with complaints of blood rn in urine. 11:06 The patient presents with a Kamara catheter problem, draining cloudy urine, draining rn bloody urine. Onset: The symptoms/episode began/occurred yesterday. Modifying factors: The symptoms are alleviated by nothing, the symptoms are aggravated by nothing. Severity of symptoms: At their worst the symptoms were mild, in the emergency department the symptoms are unchanged. The patient has not experienced similar symptoms in the past. Reports has had to self-cath for years, recently in hospital for head injury and in rehab put kamara in. Now in for about 15 days, finished bactrim last week. Now having 2 episodes of blood-tinged urine that cleared on its own, and cloudy urine. Patient doesn't feel sick, no fever/chills/abd pain. family states HR always a little elevated around 105-110. . Historical: - Allergies: 11:12 Codeine; iw 11:12 Tetanus Vaccines \T\ Toxoid; iw - Home Meds: 11:12 Flomax 0.4 mg Oral cp24 1 cap once daily [Active]; iw - PMHx: 11:12 colon cancer; Prostate Cancer; CVA; iw - PSHx: 11:12 abdominal; neck; Heart stents; colon resection; iw - Immunization history:: Adult Immunizations up to date. - Social history:: Smoking status: Patient/guardian denies using tobacco. - Family history:: not pertinent. - Ebola Screening: : Patient negative for fever greater than or equal to 101.5 degrees Fahrenheit, and additional compatible Ebola Virus Disease symptoms Patient denies exposure to infectious person Patient denies travel to an Ebola-affected area in the 21 days before illness onset No symptoms or risks identified at this time. - Hospitalizations: : Patient was recently seen at. ROS: 11:06 Constitutional: Negative for fever, chills, and weight loss, Eyes: Negative for injury, rn pain, redness, and discharge, Neck: Negative for injury, pain, and swelling, Cardiovascular: Negative for chest pain, palpitations, and edema, Respiratory: Negative for shortness of breath, cough, wheezing, and pleuritic chest pain, Abdomen/GI: Negative for abdominal pain, nausea, vomiting, diarrhea, + constipation : + blood tinged urine and cloudy urine MS/Extremity: Negative for injury and deformity, Skin: Negative for injury, rash, and discoloration, Neuro: Negative for headache, weakness, numbness, tingling, and seizure. Exam: 11:06 Constitutional: This is a well developed, well nourished patient who is awake, alert, rn and in no acute distress. Head/Face: Normocephalic, atraumatic. ENT: MMM Cardiovascular: Tachycardic, regular Respiratory: No increased work of breathing, no retractions or nasal flaring. Speaking full sentences Abdomen/GI: soft, non-tender Male : Kamara catheter in place, no blood in bag, draining, + cloudy Skin: Warm, dry Vital Signs: 11:09 BP 160 / 96; Pulse 108; Resp 20 S; Temp 98.0; Pulse Ox 98% on R/A; Weight 96.62 kg; iw Height 5 ft. 10 in. (177.80 cm); Pain 0/10; 12:20 BP 150 / 83; Pulse 79; Resp 14; Pulse Ox 98% ; bp 13:16 BP 145 / 85; Pulse 81; Resp 17; Temp 98.3; Pulse Ox 98% ; bp 11:09 Body Mass Index 30.56 (96.62 kg, 177.80 cm) iw MDM: 10:49 Patient medically screened. rn 11:53 ED course: Kamara catheter replaced without difficulty. rn 12:53 Differential diagnosis: UTI, Kamara catheter problem. Data reviewed: vital signs, nurses rn notes, lab test result(s), and as a result, I will discharge patient. Counseling: I had a detailed discussion with the patient and/or guardian regarding: the historical points, exam findings, and any diagnostic results supporting the discharge/admit diagnosis, lab results, radiology results, the need for outpatient follow up, to return to the emergency department if symptoms worsen or persist or if there are any questions or concerns that arise at home. Response to treatment: the patient's symptoms have mildly improved after treatment, and as a result, I will discharge patient. Special discussion: I discussed with the patient/guardian in detail that at this point there is no indication for admission to the hospital. It is understood, however, that if the symptoms persist or worsen the patient needs to return immediately for re-evaluation. Based on the history and exam findings, there is no indication for further emergent testing or inpatient evaluation. I discussed with the patient/guardian the need to see the urologist for further evaluation of the symptoms. ED course: + for UTI, will give IM rocephin and dc with oral abx. Return precautions given. Acute inflammation and infection can precipitate hematuria without clots in this patient without anticoagulation. . 03/24 11:04 Order name: Urine Microscopic Only; Complete Time: 13:20 rn 03/24 11:04 Order name: Kamara; Complete Time: 11:49 rn 03/24 11:04 Order name: Urine Dipstick-Ancillary (obtain specimen); Complete Time: 12:45 rn 03/24 12:45 Order name: Urine Dipstick--Ancillary (enter results); Complete Time: 13:20 mt Administered Medications: 13:05 Drug: Rocephin (cefTRIAXone) 1 grams Route: IM; Site: right vastus lateralis; bp 13:18 Follow up: Response: No adverse reaction bp Disposition: 03/24/19 12:54 Discharged to Home. Impression: Urinary tract infection, site not specified, Hematuria, unspecified. - Condition is Stable. - Discharge Instructions: Hematuria, Adult, Urinary Tract Infection, Adult. - Prescriptions for cefpodoxime 100 mg Oral Tablet - take 2 tablet by ORAL route every 12 hours for 10 days take with food; 40 tablet. - Medication Reconciliation Form, Thank You Letter, Antibiotic Education, Prescription Opioid Use form. - Follow up: Private Physician; When: As needed; Reason: Recheck today's complaints, Re-evaluation by your physician. - Problem is new. - Symptoms have improved. Signatures: Dispatcher [employer] EDMS Jonelle Rosas RN RN iw Nieto, Roman, MD MD rn Peltier, Brian, RN RN bp Corrections: (The following items were deleted from the chart) 11:09 11:06 Constitutional: Negative for fever, chills, and weight loss, Eyes: Negative for rn injury, pain, redness, and discharge, Neck: Negative for injury, pain, and swelling, Cardiovascular: Negative for chest pain, palpitations, and edema, Respiratory: Negative for shortness of breath, cough, wheezing, and pleuritic chest pain, Abdomen/GI: Negative for abdominal pain, nausea, vomiting, diarrhea, and constipation, : + blood tinged urine and cloudy urine MS/Extremity: Negative for injury and deformity, Skin: Negative for injury, rash, and discoloration, Neuro: Negative for headache, weakness, numbness, tingling, and seizure, rn 11:10 11:06 Constitutional: This is a well developed, well nourished patient who is awake, rn alert, and in no acute distress. Head/Face: Normocephalic, atraumatic. ENT: MMM Cardiovascular: Tachycardic, regular Respiratory: No increased work of breathing, no retractions or nasal flaring. Speaking full sentences Abdomen/GI: soft, non-tender Skin: Warm, dry rn 14:00 12:54 03/24/2019 12:54 Discharged to Home. Impression: Urinary tract infection, site bp not specified; Hematuria, unspecified. Condition is Stable. Forms are Medication Reconciliation Form, Thank You Letter, Antibiotic Education, Prescription Opioid Use. Follow up: Private Physician; When: As needed; Reason: Recheck today's complaints, Re-evaluation by your physician. Problem is new. Symptoms have improved. rn
--- NOTE | 2019-03-24 12:55 | ER ---
Nurse's Notes [facility] Name: Ricki Waterman Age: 83 yrs Sex: Male : 1935 Arrival Date: 03/24/2019 Time: 10:43 Bed 18 Private MD: Diagnosis: Urinary tract infection, site not specified;Hematuria, unspecified Presentation: 03/24 11:01 Presenting complaint: Child states: indwelling lorenzo in place X 15 days, placed while iw in rehab s/p CVA, noticed blood tinges urine yesterday and cloudy urine, worried about infection, lorenzo is draining appropriately, hx of enlarged prostate with tumor. Transition of care: patient was not received from another setting of care. Onset of symptoms was March 23, 2019. Risk Assessment: Do you want to hurt yourself or someone else? Patient reports no desire to harm self or others. Initial Sepsis Screen: Does the patient meet any 2 criteria? HR > 90 bpm. Does the patient have a suspected source of infection? No. Patient's initial sepsis screen is negative. Care prior to arrival: None. 11:01 Method Of Arrival: Wheelchair 11:01 Acuity: USAMA 3 iw Triage Assessment: 11:10 General: Appears in no apparent distress. comfortable, Behavior is calm, cooperative, bp appropriate for age. Pain: Denies pain. EENT: No deficits noted. Neuro: No deficits noted. Cardiovascular: No deficits noted. Respiratory: No deficits noted. GI: No deficits noted. : Lorenzo in place Urine is cloudy, blood tinged. Derm: No deficits noted. Musculoskeletal: No deficits noted. Historical: - Allergies: 11:12 Codeine; iw 11:12 Tetanus Vaccines \T\ Toxoid; iw - Home Meds: 11:12 Flomax 0.4 mg Oral cp24 1 cap once daily [Active]; iw - PMHx: 11:12 colon cancer; Prostate Cancer; CVA; iw - PSHx: 11:12 abdominal; neck; Heart stents; colon resection; iw - Immunization history:: Adult Immunizations up to date. - Social history:: Smoking status: Patient/guardian denies using tobacco. - Family history:: not pertinent. - Ebola Screening: : Patient negative for fever greater than or equal to 101.5 degrees Fahrenheit, and additional compatible Ebola Virus Disease symptoms Patient denies exposure to infectious person Patient denies travel to an Ebola-affected area in the 21 days before illness onset No symptoms or risks identified at this time. - Hospitalizations: : Patient was recently seen at. Screenin:10 Abuse screen: Denies threats or abuse. Denies injuries from another. Nutritional bp screening: No deficits noted. Tuberculosis screening: No symptoms or risk factors identified. Fall Risk None identified. Assessment: 11:10 General: SEE TRIAGE NOTE. bp 11:50 Reassessment: LORENZO REPLACED WITH STERILE PROCEDURE. bp 13:15 Reassessment: PT ON SHOT TIME. bp 13:57 Reassessment: PT D/C HOME VIA W/C WITH FAMILY, DX WITH UTI. bp Vital Signs: 11:09 BP 160 / 96; Pulse 108; Resp 20 S; Temp 98.0; Pulse Ox 98% on R/A; Weight 96.62 kg; iw Height 5 ft. 10 in. (177.80 cm); Pain 0/10; 12:20 BP 150 / 83; Pulse 79; Resp 14; Pulse Ox 98% ; bp 13:16 BP 145 / 85; Pulse 81; Resp 17; Temp 98.3; Pulse Ox 98% ; bp 11:09 Body Mass Index 30.56 (96.62 kg, 177.80 cm) iw ED Course: 10:43 Patient arrived in ED. mr 10:48 Timothy Segal MD is Attending Physician. rn 10:52 Kevin Young, MAXIMO is Primary Nurse. bp 11:03 Triage completed. iw 11:09 Arm band placed on. iw 11:10 Patient has correct armband on for positive identification. Bed in low position. Call bp light in reach. Side rails up X2. Adult w/ patient. 11:50 Coud inserted, using sterile technique, 16 Fr. To gravity drainage. Patient tolerated bp well. 13:16 No provider procedures requiring assistance completed. Patient did not have IV access bp during this emergency room visit. Administered Medications: 13:05 Drug: Rocephin (cefTRIAXone) 1 grams Route: IM; Site: right vastus lateralis; bp 13:18 Follow up: Response: No adverse reaction bp Outcome: 12:54 Discharge ordered by . rn 13:16 Discharged to home via wheelchair, with family. bp 13:16 Condition: stable 13:16 Discharge instructions given to patient, family, Instructed on discharge instructions, follow up and referral plans. Demonstrated understanding of instructions, follow-up care. 14:00 Patient left the ED. bp Signatures: Latisha Schuster Irene, RN RN Timothy Santamaria MD MD rn Peltier, MAXIMO Brown RN bp Corrections: (The following items were deleted from the chart) 11:09 11:01 Presenting complaint: Child states: indwelling lorenzo in place X 15 days, placed iw while in rehab s/p CVA, noticed blood tinges urine yesterday and cloudy urine, worried about infection, lorenzo is draining appropriately, hx of enlarged prostate , prostate cancer iw
[2019-03-24] MEDS ORDERED: CEFTRIAXONE 1000 MG/VIAL ONE (13:06)
[2019-03-24] MEDS ORDERED: WATER FOR INJ,STERILE 10 ML ONE (13:06)
[2019-03-24 13:07] LABS: Urine Blood 3+ (NEG); Urine Glucose NEGATIVE (NEG); Urine Protein 3+ (NEG); Urine Specific Gravity 1.015 (1.005-1.030)
[2019-03-24 13:13] LABS: Urine RBC >50 /HPF (NONE SEEN)
[2019-03-24 13:14] LABS: Urine Bacteria 20-50 /HPF (NONE SEEN); Urine Culture Reflex Order NOT NEEDED
[2019-03-24 14:05] VITALS: O2SAT 98
[2019-03-24 14:08] VITALS: BP 145/85; TEMP 98.3
== END 2019-03-24 14:00 | disposition home or self-care (01) ==
LOC: ER 10:40
DX: N39.0 Urinary tract infection, site not specified (principal); Z88.5 Allergy status to narcotic agent; Z88.7 Allergy status to serum and vaccine; Z85.46 Personal history of malignant neoplasm of prostate; Z95.818 Presence of other cardiac implants and grafts; Z85.038 Personal history of other malignant neoplasm of large intestine
CPT/HCPCS: 81003; 81015; 96372; 99284

== ENCOUNTER 2019-04-18 15:22 | Emergency (ER) | payer OTHER ==
--- OUTSIDE RECORDS SUMMARY | 2019-04-18 15:25 | XMS REPORT ---
:1935 [facility] Address [address] [place] [address] Dr. Bose [address] [place] [id number] Care Team Providers Name Role Phone Unavailable Unavailable Unavailable Problems This patient has no known problems. Allergies, Adverse Reactions, Alerts This patient has no known allergies or adverse reactions. Medications This patient has no known medications. Encounters Start End Encounter Admission Attending Care Care Encounter Date/Time Date/Time Type Type Clinicians Facility Department ID 2019-02-01 Inpatient E [facility] [id number] 12:04:00
[2019-04-18] MEDS ORDERED: NA CHLORIDE 0.9% 1,000 ML ONE (16:17)
[2019-04-18 16:34] LABS: Absolute Lymphocytes (CBC) 0.7 K/uL (0.7-4.9); Basophils % 0.2 % (0-1.3); Lymphocytes % 4.2 % (15.3-44.8); MPV 7.7 fL (7.6-11.3); RBC Red Blood Cell Count 3.72 M/uL (4.33-5.43)
[2019-04-18 16:49] LABS: Albumin 2.4 g/dL (3.4-5.0); Bilirubin Direct 0.2 mg/dL (0-0.2); Bilirubin Total 0.4 mg/dL (0.2-1.0); Potassium 4.2 mmol/L (3.5-5.1); Protein, Total 7.3 g/dL (6.4-8.2)
[2019-04-18 17:29] LABS: Blood Morphology Comment NOT SEEN (NOT SEEN); Platelet Estimate ADEQ; Platelets, Giant PRESENT; Toxic Granulation 1+; Urine White Blood Cell Casts OK
--- NOTE | 2019-04-18 17:48 | RAD REPORT ---
EXAM DESCRIPTION: CT - Abdomen Pelvis W Contrast - 04/18/2019 5:19 pm CLINICAL HISTORY: Abdominal pain/ colon cancer COMPARISON: October 2017 TECHNIQUE: Computed axial tomography of the abdomen pelvis was obtained. 100 cc Isovue-300 was admin istered intravenously. Oral contrast was not requested which limits evaluation of bowel. All CT scans are performed using dose optimization technique as appropriate and may include automated exposure control or mA/KV adjustment according to patient size. FINDINGS: The most superior slices demonstrate 37 x 18 millimeter posterior subcarinal lymph node. I nfer right hilar lymphadenopathy is present. Possible left posterior subcarinal lymph node. Small right pleural effusion Liver contains approximately 15 low-density lesions varying in size from a few millimeters to 2 centi meters. Most have enlarged compatible with metastases. The spleen, pancreas and adrenals are unremarkable. Marked bilateral hydronephrosis and hydroureter. Ill-defined fluid is present within the fat adjacent to the right renal sinus and right ureter likely indicating extravasation. An ill-defined mass is present within the region of the rectum, prostate gland bladder. The mass is i ll-defined low probably measures least 6 centimeters. Enlarged lymph nodes are present within the abdomen, pelvis and left inguinal regions. A Noe catheter is present within the bladder. Areas of sclerosis are present within the T10 and T11 vertebra. . Sclerosis is present within the pro ximal left femur. Bilateral inguinal hernias contain fat IMPRESSION: Large mass involving the rectum, prostate and bladder consistent with neoplasm. The mass obstructs both ureters resulting in marked bilateral hydronephrosis. Pyelosinus extravasation is pre sent Sclerosis involving the thoracic vertebra and left femur consistent with metastatic disease Neoplastic lymphadenopathy involves the chest, abdomen, pelvis and left inguinal region Hepatic metastases
[2019-04-18] MEDS ORDERED: CEFTRIAXONE/SWI 1gm 1 GM/10 ML SYR ONE (18:01)
[2019-04-18 18:09] LABS: Urine Bacteria 20-50 /HPF (NONE SEEN); Urine Culture Reflex Order NOT NEEDED; Urine Mucus 2+ /HPF (NONE SEEN)
--- NOTE | 2019-04-18 18:29 | ER ---
Nurse's Notes [facility] Name: Ricki Waterman Age: 83 yrs Sex: Male : 1935 Arrival Date: 04/18/2019 Time: 15:26 Bed 2 Private MD: Diagnosis: Dehydration;Urinary tract infection, site not specified;Hydronephrosis with bilateral ureteral obstruction Presentation: 04/18 15:28 Presenting complaint:. Presenting complaint: Child states: Lack of appetite with four la1 days of constipation, decreased mobility. Transition of care: patient was not received from another setting of care. Onset of symptoms was April 18, 2019. Risk Assessment: Do you want to hurt yourself or someone else? Patient reports no desire to harm self or others. Initial Sepsis Screen: Does the patient meet any 2 criteria? HR > 90 bpm. Does the patient have a suspected source of infection? No. Patient's initial sepsis screen is negative. Care prior to arrival: None. 15:28 Method Of Arrival: Wheelchair la1 15:28 Acuity: USAMA 3 la1 15:28 Note pt has a kamara in place to gravity with urine noted in bag at this time. tw2 Historical: - Allergies: 15:30 Codeine; la1 15:30 Tetanus Vaccines \T\ Toxoid; la1 - Home Meds: 15:53 Flomax 0.4 mg Oral cp24 1 cap once daily [Active]; Fentanyl Patch Topical [Active]; tw2 Hydrocodone [Active]; Tramadol Oral [Active]; - PMHx: 15:30 colon cancer; CVA; Prostate Cancer; subdural hematoma; la1 - PSHx: 15:53 abdominal; neck; Heart stents; colon resection; tw2 - Immunization history:: Adult Immunizations up to date. - Social history:: Smoking status: unknown. - Ebola Screening: : No symptoms or risks identified at this time. - Family history:: not pertinent. - Hospitalizations: : No recent hospitalization is reported. Screenin:41 Abuse screen: Denies threats or abuse. Nutritional screening: No deficits noted. tw2 Tuberculosis screening: No symptoms or risk factors identified. Fall Risk None identified. Assessment: 16:10 General: Appears in no apparent distress. comfortable, Behavior is calm, cooperative, sv appropriate for age. General: Reports decreased appetite. General: Reports dehydration. Pain: Denies pain. Neuro: Level of Consciousness is awake, alert, obeys commands, Oriented to person, place, time, situation, Moves all extremities. Neuro: Reports weakness. Respiratory: Airway is patent Respiratory effort is even, unlabored, Respiratory pattern is regular, symmetrical. GI: Reports constipation. Derm: Skin is normal. 17:10 Reassessment: Patient appears in no apparent distress at this time. Patient and/or tw2 family updated on plan of care and expected duration. Pain level reassessed. 18:07 Reassessment: Patient appears in no apparent distress at this time. Patient and/or tw2 family updated on plan of care and expected duration. Pain level reassessed. 19:15 General: Appears in no apparent distress. comfortable, Behavior is calm, cooperative, jd3 appropriate for age. Pain: Complains of pain in back Quality of pain is described as aching. Neuro: Level of Consciousness is awake, alert, obeys commands, Oriented to person, place, time, situation. Cardiovascular: Capillary refill < 3 seconds Patient's skin is warm and dry. Respiratory: Airway is patent Respiratory effort is even, unlabored, Respiratory pattern is regular, symmetrical, Denies cough, shortness of breath. GI: Abdomen is round non-distended, Reports constipation, Patient currently denies nausea, vomiting. : No signs and/or symptoms were reported regarding the genitourinary system. EENT: No signs and/or symptoms were reported regarding the EENT system. Derm: Skin is intact, Skin is dry, Skin is normal, Skin temperature is warm. Musculoskeletal: Circulation, motion, and sensation intact. Range of motion: intact in all extremities. 20:16 Reassessment: first attempt ot call report, was told the nurse was busy and to call [facility] back in 15 min. 20:29 Reassessment: 2nd attempt to call report. was told the facility will call back. jd3 20:31 Reassessment: Patient appears in no apparent distress at this time. No changes from jd3 previously documented assessment. Patient and/or family updated on plan of care and expected duration. Pain level reassessed. Patient is alert, oriented x 3, equal unlabored respirations, skin warm/dry/pink. 21:03 Reassessment: report given to [facility]. transfer form signed. jd3 21:37 Reassessment: Patient appears in no apparent distress at this time. Patient and/or jd3 family updated on plan of care and expected duration. Pain level reassessed. Patient is alert, oriented x 3, equal unlabored respirations, skin warm/dry/pink. awaiting EMS for transfer. family at bedside. Vital Signs: 15:30 BP 134 / 74; Pulse 116; Resp 18; Temp 98.7; Pulse Ox 95% on R/A; la1 16:44 BP 142 / 67; Pulse 103; Resp 19; Pulse Ox 96% ; sv 17:33 BP 141 / 65; Pulse 98; Resp 20; Pulse Ox 97% ; sv 18:07 BP 147 / 70; Pulse 109; Resp 20; Pulse Ox 97% ; sv 18:50 BP 144 / 68; Pulse 103; Resp 18; Temp 98.4(O); Pulse Ox 95% on R/A; sv 19:46 BP 133 / 71; Pulse 94; Resp 17 S; Pulse Ox 95% on R/A; jd3 20:31 BP 131 / 67; Pulse 103; Resp 20 S; Pulse Ox 97% on R/A; jd3 21:38 BP 137 / 72; Pulse 100; Resp 20 S; Pulse Ox 97% on R/A; jd3 ED Course: 15:26 Patient arrived in ED. as 15:29 Triage completed. la1 15:30 Arm band placed on right wrist. la1 15:41 Bed in low position. Call light in reach. tw2 15:42 Patient taken to an exam room, via wheelchair. sv 15:45 Timothy Segal MD is Attending Physician. rn 15:49 Katelyn Salazar RN is Primary Nurse. sv 15:50 ED physician to see patient. sv 16:01 Radiology exam delayed due to lab results not completed at this time. (BUN/Creatinine). vm2 16:14 Missed attempt(s): 22 gauge in right antecubital area. Bleeding controlled, band aid sv applied, catheter tip intact. 16:18 First set of blood cultures drawn by me. Inserted saline lock: 22 gauge in right sv antecubital area, using aseptic technique. Blood collected. Flushed right antecubital with 5 ml normal saline. 16:20 Second set of blood cultures drawn by me. sv 16:34 Radiology exam delayed due to lab results not completed at this time. (BUN/Creatinine). vm2 16:42 Radiology exam delayed due to lab results not completed at this time. (BUN/Creatinine). nj 16:48 EKG done, by endoscopic technician. reviewed by Timothy Segal MD. sm3 17:[address] via stretcher. nj 17:19 CT Abd/Pelvis - IV Contrast Only In Process Unspecified. EDMS 18:11 initiated a transfer with Corinne from [facility] [place]. eb 18:21 connected the hospitalist floor tiling professional for [facility] with for patient transfer eb consultation. 18:50 transfer approval from receiving facility. sv 19:07 Primary Nurse role handed off by Katelyn Salazar RN sv 19:07 Report given to Sly MARSH and Inessa MARSH. sv 19:16 Sly Reynoso RN is Primary Nurse. jd3 19:16 IV is patent, is intact, with fluids infusing freely, with good blood return. jd3 22:35 No provider procedures requiring assistance completed. Patient transferred, IV remains jd3 in place. Administered Medications: 16:28 Drug: NS 0.9% 1000 ml Route: IV; Rate: 1000 ml; Site: right antecubital; tw2 19:00 Follow up: Response: No adverse reaction; IV Status: Completed infusion; IV Intake: jd3 1000ml 18:05 Drug: Rocephin - (cefTRIAXone) 1 grams Route: IVPB; Infused Over: 30 mins; Site: right sv antecubital; 19:00 Follow up: Response: No adverse reaction; IV Status: Completed infusion jd3 19:30 Drug: Zosyn 3.375 grams Route: IVPB; Infused Over: 60 mins; Site: right antecubital; jd3 20:30 Follow up: Response: No adverse reaction; IV Status: Completed infusion; IV Intake: jd3 100ml 19:44 Drug: morphine 4 mg Route: IVP; Site: right antecubital; jd3 20:44 Follow up: Response: No adverse reaction; RASS: Alert and Calm (0) jd3 Intake: 19:00 IV: 1000ml; Total: 1000ml. jd3 20:30 IV: 100ml; Total: 1100ml. jd3 Outcome: 18:29 ER care complete, transfer ordered by . rn 22:35 Patient left the ED. jd3 22:35 Transferred by ground EMS to [facility], Transfer form completed. jd3 X-rays sent w/ patient. 22:35 Condition: stable 22:35 Instructed on the need for transfer, Demonstrated understanding of instructions. Addendum: 04/24/2019 08:08 Addendum: Culture Results: Positive urine culture. Phone call Attempt #1 Pt was a a5 transferred to [facility] stated they d/c'd pt 04/23/19. Attempted to call pt without answer, left voicemail. Signatures: Dispatcher [employer] EDMS Katelyn Salazar, RN RN Kathe Haji Roman, MD MD rn Calderon, Corine, RN RN aa5 Arcadio Sauceda RN RN la1 Francine Collazo RN RN 2 Luca Porter [facility] Sly Reynoso RN RN jd3 Akila Mcgill Shakira 3 Corrections: (The following items were deleted from the chart) 04/18 18:50 18:50 BP 144 / 68; Pulse 103bpm; Resp 18bpm; Pulse Ox 95% RA; sv sv
--- NOTE | 2019-04-18 18:30 | EDPHYS ---
Physician Documentation [facility] Name: Ricki Waterman Age: 83 yrs Sex: Male : 1935 Arrival Date: 04/18/2019 Time: 15:26 Bed 2 Private MD: ED Physician Timothy Segal HPI: 04/18 16:29 This 83 yrs old Male presents to ER via Wheelchair with complaints of rn Dehydration. 16:29 Family reports known pelvic mass, slow worsening of weakness, dehydration, not eating, rn did not have a bowel movement for 4 days, finally after laxatives had liquid stool today. No fever. Has ongoing UTI with indwelling kamara. Increased weakness with trouble standing, lately needing 2 sons to help.. Onset: The symptoms/episode began/occurred at an unknown time. Severity of symptoms: At their worst the symptoms were moderate in the emergency department the symptoms are unchanged. The patient has experienced similar episodes in the past. The patient has not recently seen a physician. Historical: - Allergies: 15:30 Codeine; la1 15:30 Tetanus Vaccines \T\ Toxoid; la1 - Home Meds: 15:53 Flomax 0.4 mg Oral cp24 1 cap once daily [Active]; Fentanyl Patch Topical [Active]; tw2 Hydrocodone [Active]; Tramadol Oral [Active]; - PMHx: 15:30 colon cancer; CVA; Prostate Cancer; subdural hematoma; la1 - PSHx: 15:53 abdominal; neck; Heart stents; colon resection; tw2 - Immunization history:: Adult Immunizations up to date. - Social history:: Smoking status: unknown. - Ebola Screening: : No symptoms or risks identified at this time. - Family history:: not pertinent. - Hospitalizations: : No recent hospitalization is reported. ROS: 16:29 Constitutional: Negative for fever, chills, and weight loss, Eyes: Negative for injury, rn pain, redness, and discharge, Neck: Negative for injury, pain, and swelling, Cardiovascular: Negative for chest pain, palpitations, and edema, Respiratory: Negative for shortness of breath, cough, wheezing, and pleuritic chest pain, Abdomen/GI: Negative for nausea, vomiting, diarrhea MS/Extremity: Negative for injury and deformity, Skin: Negative for injury, rash, and discoloration, Neuro: Negative for headache, numbness, tingling, and seizure. Exam: 16:29 Constitutional: Awake, alert, and in no acute distress. Head/Face: Normocephalic, rn atraumatic. Eyes: Pupils equal round and reactive to light, extra-ocular motions intact. Lids and lashes normal. Conjunctiva and sclera are non-icteric and not injected. Cornea within normal limits. Periorbital areas with no swelling, redness, or edema. ENT: dry MM, no swelling Cardiovascular: Tachycardic, regular, no murmur Respiratory: No increased work of breathing, no retractions or nasal flaring. Abdomen/GI: soft, + tender bilateral lower quadrants, no rebound Male : Indwelling kamara catheter, yellow urine Skin: Warm, dry MS/ Extremity: Pulses equal, no cyanosis. Neurovascular intact. Full, normal range of motion. Equal circumference. Neuro: Awake and alert, GCS 15, oriented to person, place, time, and situation. Cranial nerves II-XII grossly intact. Motor strength 4/5 in all extremities. Sensory grossly intact. Vital Signs: 15:30 BP 134 / 74; Pulse 116; Resp 18; Temp 98.7; Pulse Ox 95% on R/A; la1 16:44 BP 142 / 67; Pulse 103; Resp 19; Pulse Ox 96% ; sv 17:33 BP 141 / 65; Pulse 98; Resp 20; Pulse Ox 97% ; sv 18:07 BP 147 / 70; Pulse 109; Resp 20; Pulse Ox 97% ; sv 18:50 BP 144 / 68; Pulse 103; Resp 18; Temp 98.4(O); Pulse Ox 95% on R/A; sv 19:46 BP 133 / 71; Pulse 94; Resp 17 S; Pulse Ox 95% on R/A; jd3 20:31 BP 131 / 67; Pulse 103; Resp 20 S; Pulse Ox 97% on R/A; jd3 21:38 BP 137 / 72; Pulse 100; Resp 20 S; Pulse Ox 97% on R/A; jd3 MDM: 15:45 Patient medically screened. rn 18:05 Differential Diagnosis UTI, metastatic cancer. Data reviewed: vital signs, nurses rn notes, lab test result(s), radiologic studies, CT scan, and as a result, I will admit patient. Counseling: I had a detailed discussion with the patient and/or guardian regarding: the historical points, exam findings, and any diagnostic results supporting the discharge/admit diagnosis, lab results, radiology results, the need to transfer to another facility, [facility] does not immediately have the required specialist. Response to treatment: the patient's symptoms have mildly improved after treatment, and as a result, I will admit patient. ED course: Pt with worsening metastatic cancer, had only known of pelvis mass, now metastatic with compression and obstruction of bilateral ureters with hydro and leakage of urine. Abx started, updated patient and family, no urology here, will transfer to [facility] for further management. . 18:25 ED course: Accepted to [facility] by Dr. Liu, hospitalist, who requests urology rn consultation as well. . 04/18 15:58 Order name: Basic Metabolic Panel; Complete Time: 17:32 04/18 15:58 Order name: CBC with Diff; Complete Time: 17:32 04/18 15:58 Order name: Creatinine for Radiology; Complete Time: 17:32 04/18 15:58 Order name: Hepatic Function; Complete Time: 17:32 04/18 15:58 Order name: Lipase; Complete Time: 17:32 04/18 15:58 Order name: Urine Culture 04/18 15:58 Order name: Urine Microscopic Only; Complete Time: 18:20 04/18 16:00 Order name: Procalcitonin; Complete Time: 18:20 04/18 16:00 Order name: Lactate; Complete Time: 17:32 04/18 16:00 Order name: Blood Culture Adult (2) 04/18 17:29 Order name: CBC Smear Scan; Complete Time: 17:32 [facility] 04/18 19:15 Order name: PT-INR 04/18 19:15 Order name: Ptt, Activated 04/18 21:54 Order name: Lactate Sepsis 2 HR Follow-up [facility] 04/18 15:58 Order name: IV Saline Lock; Complete Time: 16:30 04/18 15:58 Order name: Labs collected and sent; Complete Time: 16:17 04/18 15:58 Order name: Urine Dipstick-Ancillary (obtain specimen); Complete Time: 17:49 04/18 15:58 Order name: CT Abd/Pelvis - IV Contrast Only; Complete Time: 17:51 rn 04/18 16:00 Order name: EKG; Complete Time: 16:01 rn 04/18 16:00 Order name: EKG - Nurse/Tech; Complete Time: 17:49 rn Administered Medications: 16:28 Drug: NS 0.9% 1000 ml Route: IV; Rate: 1000 ml; Site: right antecubital; tw2 19:00 Follow up: Response: No adverse reaction; IV Status: Completed infusion; IV Intake: jd3 1000ml 18:05 Drug: Rocephin - (cefTRIAXone) 1 grams Route: IVPB; Infused Over: 30 mins; Site: right sv antecubital; 19:00 Follow up: Response: No adverse reaction; IV Status: Completed infusion jd3 19:30 Drug: Zosyn 3.375 grams Route: IVPB; Infused Over: 60 mins; Site: right antecubital; jd3 20:30 Follow up: Response: No adverse reaction; IV Status: Completed infusion; IV Intake: jd3 100ml 19:44 Drug: morphine 4 mg Route: IVP; Site: right antecubital; jd3 20:44 Follow up: Response: No adverse reaction; RASS: Alert and Calm (0) jd3 Disposition: 04/18/19 18:29 Transfer ordered to [facility]. Diagnosis are Dehydration, Urinary tract infection, site not specified, Hydronephrosis with bilateral ureteral obstruction. - Reason for transfer: Higher level of care. - Accepting physician is Dr. Liu. - Condition is Stable. - Problem is an ongoing problem. - Symptoms are unchanged. Signatures: Dispatcher [employer] EDAK Katelyn Salazar RN RN Timothy Saleem MD MD rn Attema, Lee, RN RN la1 Francine Collazo RN RN tw2 Sly Reynoso RN RN jd3 Corrections: (The following items were deleted from the chart) 22:35 18:29 04/18/2019 18:29 Transfer ordered to [facility]. Diagnosis is jd3 Dehydration; Urinary tract infection, site not specified; Hydronephrosis with bilateral ureteral obstruction. Reason for transfer: Higher level of care. Accepting physician is Dr. Liu. Condition is Stable. Problem is an ongoing problem. Symptoms are unchanged. rn
[2019-04-18] MEDS ORDERED: PIPER/TAZO/NS 3.375gm 3.375 GM/100 ML BAG ONE (19:19)
[2019-04-18] MEDS ORDERED: MORPHINE 4 MG/ML SYR ONE (19:39)
[2019-04-18 19:42] LABS: Protime INR 1.17
[2019-04-18 22:44] VITALS: TEMP 98.4
[2019-04-18 22:47] VITALS: O2SAT 97
[2019-04-18 22:48] VITALS: BP 137/72
--- NOTE | 2019-04-19 11:59 | EKG ---
Test Date: 2019-04-18 Test Time: 16:42:55 Trauma Surgeon: ESTRADA MEASUREMENT RESULTS: Intervals: Rate: 105 MA: 150 QRSD: 90 QT: 330 QTc: 436 [place]: P: 32 MA: 150 QRS: 28 T: 55 INTERPRETIVE STATEMENTS: Sinus tachycardia Otherwise normal ECG No previous ECG available for comparison Electronically Signed On 04-19-19 11:57:01 CAN INTAKE WORKER by Chase Pearce
== END 2019-04-18 22:35 | disposition short-term general hospital (02) ==
LOC: ER 15:22
DX: C18.9 Malignant neoplasm of colon, unspecified (principal); C79.82 Secondary malignant neoplasm of genital organs; N39.0 Urinary tract infection, site not specified; N13.1 Hydronephrosis with ureteral stricture, not elsewhere classified; Z88.5 Allergy status to narcotic agent; Z88.7 Allergy status to serum and vaccine
CPT/HCPCS: 96365; 96367; 96361; 93005; 87040 ×2; 87088; 85025; 87086; 80048; 36415; 85610; 80076; 83605 ×2; 85730; 87077; 87186; 81015; 83690; 84145; 74177; 96375; 99285; Q9967; J2543; J0696; J7030

== ENCOUNTER 2019-05-23 08:05 | Emergency (ER) | payer OTHER ==
--- OUTSIDE RECORDS SUMMARY | 2019-05-23 08:08 | XMS REPORT ---
:1935 [facility] [address] [place] [address] Dr. Bose [address] [place] [id number] Care Team Providers Name Role Phone NIKKY DAIGLE Unavailable Unavailable Problems This patient has no known problems. Allergies, Adverse Reactions, Alerts This patient has no known allergies or adverse reactions. Medications This patient has no known medications. Encounters Start End Encounter Admission Attending Care Care Encounter Date/Time Date/Time Type Type Clinicians Facility Department ID 2019-02-01 Inpatient E [facility] [id number] 12:04:00 Results Test Description Test Time Test Comments Text Results Atomic Results Result Comments URINE CULTURE 2019-04-24 09:02:00 Test Item Value Reference Range Comments CULTURE (BEAKER) (test qoqk=3053) No growth GRAM STAIN RESULT (BEAKER) (test wodx=2502) 1+ WBCs GRAM STAIN RESULT (BEAKER) (test fijv=32320) No organisms seen URINE [id number] 09:01:00 Test Item Value Reference Range Comments CULTURE (BEAKER) (test gyvf=4791) No growth GRAM STAIN RESULT (BEAKER) (test 2+ WBCs zmnz=4541) GRAM STAIN RESULT (BEAKER) (test No organisms seen hven=19006) [id number] 06:14:00 Test Item Value Reference Range Comments MAGNESIUM (BEAKER) (test ttee=546) 2.0 mg/dL 1.6-2.6 BASIC METABOLIC [id number] 06:14:00 Test Item Value Reference Range Comments SODIUM (BEAKER) (test 139 meq/L 136-145 yhkk=104) POTASSIUM (BEAKER) (test 4.0 meq/L 3.5-5.1 lvmm=956) CHLORIDE (BEAKER) (test 108 meq/L 98-107 phca=894) CO2 (BEAKER) (test 24 meq/L 22-29 kylo=034) BLOOD UREA NITROGEN 9 mg/dL 7-21 (BEAKER) (test wybf=158) CREATININE (BEAKER) (test 0.71 mg/dL 0.57-1.25 rbfx=032) GLUCOSE RANDOM (BEAKER) 101 mg/dL 70-105 (test ciix=834) CALCIUM (BEAKER) (test 8.8 mg/dL 8.4-10.2 bczu=693) EGFR (BEAKER) (test 106 mL/min/1.73 sq m ESTIMATED GFR IS NOT nxsf=8282) ACCURATE CREATININE CLEARANCE IN PREDICTING GLOMERULAR FILTRATION RATE. ESTIMATED GFR IS NOT APPLICABLE FOR DIALYSIS PATIENTS. CBC W/PLT COUNT & AUTO [id number] 05:34:00 Test Item Value Reference Range Comments WHITE BLOOD CELL COUNT (BEAKER) (test vrcs=191) 9.0 K/ L 3.5-10.5 RED BLOOD CELL COUNT (BEAKER) (test fwqz=247) 3.72 M/ L 4.63-6.08 HEMOGLOBIN (BEAKER) (test kivq=824) 10.8 GM/DL 13.7-17.5 HEMATOCRIT (BEAKER) (test iogv=771) 33.9 % 40.1-51.0 MEAN CORPUSCULAR VOLUME (BEAKER) (test ztta=075) 91.1 fL 79.0-92.2 MEAN CORPUSCULAR HEMOGLOBIN (BEAKER) (test 29.0 pg 25.7-32.2 yotq=150) MEAN CORPUSCULAR HEMOGLOBIN CONC (BEAKER) (test 31.9 GM/DL 32.3-36.5 mxvd=172) RED CELL DISTRIBUTION WIDTH (BEAKER) (test 14.9 % 11.6-14.4 kwmm=060) PLATELET COUNT (BEAKER) (test kiwk=405) 388 K/CU MM 150-450 MEAN PLATELET VOLUME (BEAKER) (test nsro=041) 9.0 fL 9.4-12.4 NUCLEATED RED BLOOD CELLS (BEAKER) (test 0 /100 WBC 0-0 cihy=379) NEUTROPHILS RELATIVE PERCENT (BEAKER) (test 74 % ptbs=932) LYMPHOCYTES RELATIVE PERCENT (BEAKER) (test 13 % oyjf=538) MONOCYTES RELATIVE PERCENT (BEAKER) (test 8 % vfcg=880) EOSINOPHILS RELATIVE PERCENT (BEAKER) (test 4 % zbxc=193) BASOPHILS RELATIVE PERCENT (BEAKER) (test 0 % jire=396) NEUTROPHILS ABSOLUTE COUNT (BEAKER) (test 6.57 K/ L 1.78-5.38 vtfp=896) LYMPHOCYTES ABSOLUTE COUNT (BEAKER) (test 1.16 K/ L 1.32-3.57 oadi=748) MONOCYTES ABSOLUTE COUNT (BEAKER) (test 0.72 K/ L 0.30-0.82 mulc=871) EOSINOPHILS ABSOLUTE COUNT (BEAKER) (test 0.38 K/ L 0.04-0.54 enqh=003) BASOPHILS ABSOLUTE COUNT (BEAKER) (test 0.04 K/ L 0.01-0.08 crwn=810) IMMATURE GRANULOCYTES-RELATIVE PERCENT (BEAKER) 1 % 0-1 (test nvna=9560) [id number] 05:17:00 Test Item Value Reference Range Comments MAGNESIUM (BEAKER) (test 1.9 mg/dL 1.6-2.6 Specimen slightly hemolyzed ruhh=253) BASIC METABOLIC [id number] 05:17:00 Test Item Value Reference Range Comments SODIUM (BEAKER) (test 132 meq/L 136-145 rzhg=054) POTASSIUM (BEAKER) (test 4.2 meq/L 3.5-5.1 Specimen slightly cydg=747) hemolyzed CHLORIDE (BEAKER) (test 102 meq/L 98-107 ewda=030) CO2 (BEAKER) (test 22 meq/L 22-29 yvka=137) BLOOD UREA NITROGEN 11 mg/dL 7-21 (BEAKER) (test vhku=408) CREATININE (BEAKER) (test 0.75 mg/dL 0.57-1.25 Specimen slightly fndx=208) hemolyzed GLUCOSE RANDOM (BEAKER) 112 mg/dL 70-105 (test nlit=336) CALCIUM (BEAKER) (test 8.3 mg/dL 8.4-10.2 uddy=542) EGFR (BEAKER) (test 99 mL/min/1.73 sq m ESTIMATED GFR IS NOT ygtf=2214) ACCURATE CREATININE CLEARANCE IN PREDICTING GLOMERULAR FILTRATION RATE. ESTIMATED GFR IS NOT APPLICABLE FOR DIALYSIS PATIENTS. CBC W/PLT COUNT & AUTO [id number] 04:54:00 Test Item Value Reference Range Comments WHITE BLOOD CELL COUNT (BEAKER) (test pbnt=193) 9.3 K/ L 3.5-10.5 RED BLOOD CELL COUNT (BEAKER) (test kvey=324) 3.38 M/ L 4.63-6.08 HEMOGLOBIN (BEAKER) (test exaf=631) 9.8 GM/DL 13.7-17.5 HEMATOCRIT (BEAKER) (test zsrj=907) 30.6 % 40.1-51.0 MEAN CORPUSCULAR VOLUME (BEAKER) (test wrrg=710) 90.5 fL 79.0-92.2 MEAN CORPUSCULAR HEMOGLOBIN (BEAKER) (test 29.0 pg 25.7-32.2 bsez=132) MEAN CORPUSCULAR HEMOGLOBIN CONC (BEAKER) (test 32.0 GM/DL 32.3-36.5 ohue=907) RED CELL DISTRIBUTION WIDTH (BEAKER) (test 15.0 % 11.6-14.4 ihdj=780) PLATELET COUNT (BEAKER) (test zkbp=512) 367 K/CU MM 150-450 MEAN PLATELET VOLUME (BEAKER) (test olwb=869) 9.2 fL 9.4-12.4 NUCLEATED RED BLOOD CELLS (BEAKER) (test 0 /100 WBC 0-0 bzth=555) NEUTROPHILS RELATIVE PERCENT (BEAKER) (test 77 % bvmu=101) LYMPHOCYTES RELATIVE PERCENT (BEAKER) (test 12 % vhrx=665) MONOCYTES RELATIVE PERCENT (BEAKER) (test 7 % mgif=151) EOSINOPHILS RELATIVE PERCENT (BEAKER) (test 3 % wqgd=813) BASOPHILS RELATIVE PERCENT (BEAKER) (test 0 % hziw=331) NEUTROPHILS ABSOLUTE COUNT (BEAKER) (test 7.13 K/ L 1.78-5.38 zpvj=529) LYMPHOCYTES ABSOLUTE COUNT (BEAKER) (test 1.15 K/ L 1.32-3.57 edec=835) MONOCYTES ABSOLUTE COUNT (BEAKER) (test 0.66 K/ L 0.30-0.82 leva=086) EOSINOPHILS ABSOLUTE COUNT (BEAKER) (test 0.28 K/ L 0.04-0.54 kqpz=376) BASOPHILS ABSOLUTE COUNT (BEAKER) (test 0.04 K/ L 0.01-0.08 fgvm=496) IMMATURE GRANULOCYTES-RELATIVE PERCENT (BEAKER) 1 % 0-1 (test luwm=1906) [id number] 07:02:00 Test Item Value Reference Range Comments MAGNESIUM (BEAKER) (test aqog=760) 2.1 mg/dL 1.6-2.6 BASIC METABOLIC [id number] 07:02:00 Test Item Value Reference Range Comments SODIUM (BEAKER) (test 135 meq/L 136-145 xwwv=008) POTASSIUM (BEAKER) (test 4.2 meq/L 3.5-5.1 aqtb=272) CHLORIDE (BEAKER) (test 101 meq/L 98-107 evhm=995) CO2 (BEAKER) (test 26 meq/L 22-29 opcz=034) BLOOD UREA NITROGEN 13 mg/dL 7-21 (BEAKER) (test plio=651) CREATININE (BEAKER) (test 0.81 mg/dL 0.57-1.25 oaxr=556) GLUCOSE RANDOM (BEAKER) 96 mg/dL 70-105 (test ssrl=224) CALCIUM (BEAKER) (test 8.2 mg/dL 8.4-10.2 jcgt=446) EGFR (BEAKER) (test 91 mL/min/1.73 sq m ESTIMATED GFR IS NOT lznr=6408) ACCURATE CREATININE CLEARANCE IN PREDICTING GLOMERULAR FILTRATION RATE. ESTIMATED GFR IS NOT APPLICABLE FOR DIALYSIS PATIENTS. CBC W/PLT COUNT & AUTO [id number] 06:28:00 Test Item Value Reference Range Comments WHITE BLOOD CELL COUNT (BEAKER) (test lcay=814) 8.6 K/ L 3.5-10.5 RED BLOOD CELL COUNT (BEAKER) (test knmf=295) 3.19 M/ L 4.63-6.08 HEMOGLOBIN (BEAKER) (test ktlv=560) 9.1 GM/DL 13.7-17.5 HEMATOCRIT (BEAKER) (test mucr=747) 28.7 % 40.1-51.0 MEAN CORPUSCULAR VOLUME (BEAKER) (test daxu=033) 90.0 fL 79.0-92.2 MEAN CORPUSCULAR HEMOGLOBIN (BEAKER) (test 28.5 pg 25.7-32.2 iefj=766) MEAN CORPUSCULAR HEMOGLOBIN CONC (BEAKER) (test 31.7 GM/DL 32.3-36.5 jrcc=472) RED CELL DISTRIBUTION WIDTH (BEAKER) (test 15.1 % 11.6-14.4 oluj=270) PLATELET COUNT (BEAKER) (test bndv=207) 330 K/CU MM 150-450 MEAN PLATELET VOLUME (BEAKER) (test oyki=022) 9.2 fL 9.4-12.4 NUCLEATED RED BLOOD CELLS (BEAKER) (test 0 /100 WBC 0-0 zseq=913) NEUTROPHILS RELATIVE PERCENT (BEAKER) (test 79 % peqo=688) LYMPHOCYTES RELATIVE PERCENT (BEAKER) (test 11 % ypfp=384) MONOCYTES RELATIVE PERCENT (BEAKER) (test 8 % udgr=494) EOSINOPHILS RELATIVE PERCENT (BEAKER) (test 2 % lwha=556) BASOPHILS RELATIVE PERCENT (BEAKER) (test 0 % olob=259) NEUTROPHILS ABSOLUTE COUNT (BEAKER) (test 6.79 K/ L 1.78-5.38 xwqs=193) LYMPHOCYTES ABSOLUTE COUNT (BEAKER) (test 0.92 K/ L 1.32-3.57 esbl=128) MONOCYTES ABSOLUTE COUNT (BEAKER) (test 0.69 K/ L 0.30-0.82 heqf=033) EOSINOPHILS ABSOLUTE COUNT (BEAKER) (test 0.15 K/ L 0.04-0.54 rouz=313) BASOPHILS ABSOLUTE COUNT (BEAKER) (test 0.03 K/ L 0.01-0.08 vlgy=731) IMMATURE GRANULOCYTES-RELATIVE PERCENT (BEAKER) 1 % 0-1 (test stqc=1112) CT, [id number] 18:58:00Anesthesia:->NoneFINAL REPORT TECHNIQUE: CT of the abdomen and pelvis WITH intravenous contrast and WITHOUT oral contrast. Dose modulation, iterative reconstruction, and/or weight- based adjustment of the mA/kV was utilized to reduce the radiation dose to as low as reasonably achievable. INDICATION: 83-year-old man with prostate cancer. COMPARISON: None. FINDINGS: LOWER THORAX: Trace right pleural effusion with adjacent relaxation atelectasis. HEPATOBILIARY: Few scattered hepatic cysts measureup to 1.3 x 1.3 cm. Multiple additional hypodense soft tissue lesions in both lobes of the liver measure up to 2.1 x 1.8 cm. Gallbladder is unremarkable. No biliary ductal dilatation.SPLEEN: No splenomegaly.PANCREAS: No focal masses or ductal dilatation. ADRENALS: No adrenal nodules.KIDNEYS/URETERS : Moderate-severe right hydronephrosis with gradual taper of the right ureter to normal caliber. Edema surrounds the right renal pelvis and proximal ureter with hyperenhancement of the right renal pelvis and ureteral ortega. Moderate- severe left hydroureteronephrosis to the level of the ureterovesical junction.PELVIC ORGANS/BLADDER: The prostate is irregular in appearance with diffuse irregular thickened wall of the bladder. Noe catheter terminates in the bladder lumen. PERITONEUM/RETROPERITONEUM: No free air or fluid.LYMPH NODES : Nodularity in the mesorectal fat/prominent mesorectal lymph nodes. Prominent superior rectal lymph nodes. Multiple prominent bilateral common iliac, external iliac, pelvic sidewall, and obturator lymph nodes measure up to 1.5 cm. Prominent periportal lymph nodes measure upto 1.5 cm. Prominent bilateral inguinal lymph nodes measure up to 1.6 cm.VESSELS: Unremarkable. GI TRACT: Prior partial colectomy with anastomosis. Irregular soft tissue surrounds the rectum. No bowel obstruction. BONES AND SOFT TISSUES: Degenerative changes of the visualized spine. Sclerotic osseous metastases in the visualized spine and left femur. The largest sclerotic lesion in the spine involvesa majority of the T11 vertebral body. Sclerotic lesion in the lesser trochanter of the left femur measures 2.3 x 2.8 cm. Soft tissues are unremarkable. IMPRESSION:Irregular appearance of the prostate likely correlates with reported prostate cancer. Irregular thickened wall of the bladder and rectum likely represents local spread of tumor. Abdominopelvic lymphadenopathy. Hepatic and osseous metastases. Bilateral moderate-severe hydronephrosis, likely due to obstruction from the tumor in the bladder.Hyperenhancement of the right renal pelvis and ureteral ortega with surrounding edema; differential considerations include pyelitis and possibly forniceal rupture. Signed: Deborah Lee MDReport Verified Date/Time: 04/20/2019 18:58:33 Reading Location: [facility] C013Y CT Body Reading Room Electronically signed by: DEBORAH LEE MD on 2018 06:58 PMANG, [id number] 17:31:00Reason for exam:-> Bilateral hydroureteronephrosis in setting of obstructing pelvic mass ( prostatevs colon in origin); also with extravasation of urine from R kidney Would appreciate PCNU if possible Anesthesia:->MACFINAL REPORT Bilateral percutaneous nephroureteral stent placement.. History: Bilateral hydroureteronephrosis with obstructing pelvic mass. Patient also with extravasation of urine from right kidney. Modality: Ultrasound and fluoroscopy Sedation: Versed 1.0 mg and fentanyl 100 mcg was given intravenously for conscious sedation. Vital signs were monitored throughout theprocedure by a nurse, and remained stable. Physician intra- service time was 40 minutes. Anesthesia: Two percent Lidocaine without epinephrine. Approach: Left lower pole calyx and right mid pole calyx Estimated blood loss: < 5 cc. Specimen: None. strip mill operator:All Cardona MD. Real Estate Developer: None. Fluoroscopy Time: 5.4 min.Reference Air Kerma (Ka, r): 125 mGy.Technique: Informed written consent was obtained. Discussion of risks, benefits, and alternatives were made with the patient. The patient expressed understanding and agreed to proceed. A universal timeout was performed prior to starting the procedure. All elements maximal sterile barrier technique was utilized for this procedure, including utilization of sterile scrub solution for skin prep, a large sterile sheet to cover the areas of the patient that were not prepped, and hand hygiene, mask, headcovering, and sterile gown for performing radiologist and scrub technologist. Local anesthesia was achieved with lidocaine. Under direct ultrasound guidance a lower pole calyx of the left kidney was targeted. A 21- gauge Chiba needle was advanced into the left lower pole calyx. Once the needle tip was within the left lower pole calyx the inner stylette was removed and clear urine was obtained. A smallamount of contrast was injected which confirmed that the needle statement collecting system. A LYDIA wire was advanced through the Chiba needle and into the proximal left ureter. The needle was removed and an AccuStick triaxial dilator was advanced over the wire. The inner two dilators were removed and a Berenstein catheter and Glidewire were advanced through the AccuStick sheath down the left ureter into the bladder. The Glidewire was exchanged for a superstiff Amplatz wire. The Berenstein catheter and AccuStick sheath were then removed. The tract was dilated to 8 Nigerian. An 8.5 Nigerian by 24 cm Cooknephroureteral stent was then advanced over the guidewire with the distal pigtail advanced into the bladder. The wire was then removed in the distal pigtail was locked within the bladder proximal pigtails locked within the left renal pelvis. The catheter was connected to a gravity drainage bag and secured to patient's skin with 2-0 silk. Attention was then turned to the right kidney. Fluoroscopic evaluation of the right kidney demonstrated that there was extravasation of contrast administered from the preceding procedure CT from the lower pole. Ultrasound guidance was used to target the midpole calyx. A tunneling Chiba needle was advanced into the right mid pole.A LYDIA wire was advanced through theChiba needle and into the proximal right ureter. The needle was removed and an AccuStick triaxial dilator was advanced over the wire. The inner two dilators were removed and a Berenstein catheter and Glidewire were advanced through the AccuStick sheath down the right ureter into the bladder. The Glidewire was exchanged for a superstiff Amplatz wire. The Berenstein catheter and AccuStick sheath were then removed. The tract was dilated to 8 Nigerian. An 8.5 Nigerian by 24 cm Cook nephroureteral stent was then advanced over the guidewire with the distal pigtail advanced into the bladder. The wire was thenremoved in the distal pigtail was locked within the bladder proximal pigtails locked within the right renal pelvis. The catheter was connected to a gravity drainage bag and secured to patient's skin with 2-0 silk. The patient tolerated the procedure well without evidence of immediate competition. Impression: Technically successful and uncomplicated placement of bilateral percutaneous nephroureteral stents. Signed: All Cardona Verified Date/Time: 04/20/2019 17:31:14 Reading Location: [facility] Radiology Reading Room POCT-GLUCOSE [id number] 16:48:00 Test Item Value Reference Range Comments POC-GLUCOSE METER (BEAKER) 120 mg/dL 70-110 : TESTED AT [address] (test xljr=2419) [facility], [id number]: Assistant Track Coach/Digital Media Manager JK=[id number] for EDEN COPELAND POCT-GLUCOSE [id number] 13:17:00 Test Item Value Reference Range Comments POC-GLUCOSE METER (BEAKER) 115 mg/dL 70-110 : TESTED AT [address] (test fzqv=9330) [facility], [address]: Assistant Track Coach/Digital Media Manager JU=[id number] for EDEN COPELAND CBC W/PLT COUNT & AUTO [id number] 07:13:00 Test Item Value Reference Range Comments WHITE BLOOD CELL COUNT (BEAKER) (test dmir=538) 10.6 K/ L 3.5-10.5 RED BLOOD CELL COUNT (BEAKER) (test bsai=902) 3.38 M/ L 4.63-6.08 HEMOGLOBIN (BEAKER) (test fiej=063) 9.8 GM/DL 13.7-17.5 HEMATOCRIT (BEAKER) (test dwtc=288) 30.3 % 40.1-51.0 MEAN CORPUSCULAR VOLUME (BEAKER) (test ftqe=540) 89.6 fL 79.0-92.2 MEAN CORPUSCULAR HEMOGLOBIN (BEAKER) (test 29.0 pg 25.7-32.2 fapd=729) MEAN CORPUSCULAR HEMOGLOBIN CONC (BEAKER) (test 32.3 GM/DL 32.3-36.5 cwix=238) RED CELL DISTRIBUTION WIDTH (BEAKER) (test 14.8 % 11.6-14.4 ivuy=819) PLATELET COUNT (BEAKER) (test fnmo=246) 330 K/CU MM 150-450 MEAN PLATELET VOLUME (BEAKER) (test ngbv=328) 9.1 fL 9.4-12.4 NUCLEATED RED BLOOD CELLS (BEAKER) (test 0 /100 WBC 0-0 mxav=920) NEUTROPHILS RELATIVE PERCENT (BEAKER) (test 82 % kyol=213) LYMPHOCYTES RELATIVE PERCENT (BEAKER) (test 8 % xsft=581) MONOCYTES RELATIVE PERCENT (BEAKER) (test 8 % nhii=854) EOSINOPHILS RELATIVE PERCENT (BEAKER) (test 1 % vrci=729) BASOPHILS RELATIVE PERCENT (BEAKER) (test 0 % hodl=555) NEUTROPHILS ABSOLUTE COUNT (BEAKER) (test 8.71 K/ L 1.78-5.38 nfjb=694) LYMPHOCYTES ABSOLUTE COUNT (BEAKER) (test 0.86 K/ L 1.32-3.57 jwhf=967) MONOCYTES ABSOLUTE COUNT (BEAKER) (test 0.84 K/ L 0.30-0.82 elou=348) EOSINOPHILS ABSOLUTE COUNT (BEAKER) (test 0.11 K/ L 0.04-0.54 cuel=996) BASOPHILS ABSOLUTE COUNT (BEAKER) (test 0.03 K/ L 0.01-0.08 uidu=060) IMMATURE GRANULOCYTES-RELATIVE PERCENT (BEAKER) 1 % 0-1 (test siqe=5811) [id number] 06:55:00 Test Item Value Reference Range Comments MAGNESIUM (BEAKER) (test wrtg=339) 2.1 mg/dL 1.6-2.6 BASIC METABOLIC [id number] 06:55:00 Test Item Value Reference Range Comments SODIUM (BEAKER) (test 133 meq/L 136-145 yoje=621) POTASSIUM (BEAKER) (test 4.4 meq/L 3.5-5.1 krvw=713) CHLORIDE (BEAKER) (test 98 meq/L 98-107 ximt=356) CO2 (BEAKER) (test 27 meq/L 22-29 xknw=555) BLOOD UREA NITROGEN 15 mg/dL 7-21 (BEAKER) (test ibew=679) CREATININE (BEAKER) (test 1.40 mg/dL 0.57-1.25 nuvc=243) GLUCOSE RANDOM (BEAKER) 113 mg/dL 70-105 (test xpjy=508) CALCIUM (BEAKER) (test 8.4 mg/dL 8.4-10.2 fvdp=228) EGFR (BEAKER) (test 48 mL/min/1.73 sq m ESTIMATED GFR IS NOT msig=5964) ACCURATE CREATININE CLEARANCE IN PREDICTING GLOMERULAR FILTRATION RATE. ESTIMATED GFR IS NOT APPLICABLE FOR DIALYSIS PATIENTS. OSMOLALITY, [id number] 06:07:00 Test Item Value Reference Range Comments OSMOLALITY URINE (BEAKER) (test zqvb=547) 234 mOsm/kg 40-1,400 URINALYSIS W/ REFLEX URINE [id number] 05:06:00 Test Item Value Reference Range Comments COLOR (BEAKER) (test fiai=505) Light Yellow CLARITY (BEAKER) (test wcje=940) Hazy SPECIFIC GRAVITY UA (BEAKER) (test kujd=483) 1.018 1.001-1.035 PH UA (BEAKER) (test gegh=331) 6.5 5.0-8.0 PROTEIN UA (BEAKER) (test ypwm=539) 30 mg/dL Negative GLUCOSE UA (BEAKER) (test lkjt=175) Negative Negative KETONES UA (BEAKER) (test nxyz=619) Negative Negative BILIRUBIN UA (BEAKER) (test kjld=863) Negative Negative BLOOD UA (BEAKER) (test kxbc=770) Moderate Negative NITRITE UA (BEAKER) (test atws=960) Negative Negative LEUKOCYTE ESTERASE UA (BEAKER) (test nxch=195) Large Negative UROBILINOGEN UA (BEAKER) (test tfyo=128) 0.2 mg/dL 0.2-1.0 RBC UA (BEAKER) (test kzox=067) 15 /HPF WBC UA (BEAKER) (test hrkg=327) 45 /HPF BACTERIA (BEAKER) (test bprc=238) Occasional MUCUS (BEAKER) (test jvxk=1977) Occasional AMORPHOUS CRYSTALS (BEAKER) (test bxso=2215) Occasional SOURCE(BEAKER) (test qbdm=1189) OSMOLALITY, [id number] 04:13:00 Test Item Value Reference Range Comments OSMOLALITY, SERUM (BEAKER) (test orws=092) 270 mOsm/kg 275-295 SODIUM, RANDOM [id number] 04:07:00 Test Item Value Reference Range Comments SODIUM URINE (BEAKER) (test kxya=548) 36 meq/L Reference Range: No NormalsCOMPREHENSIVE METABOLIC [id number] 03:55:00 Test Item Value Reference Range Comments TOTAL PROTEIN (BEAKER) 6.0 gm/dL 6.0-8.3 (test rzqv=928) ALBUMIN (BEAKER) (test 2.7 g/dL 3.5-5.0 ltzr=3800) ALKALINE PHOSPHATASE 101 U/L 40-150 (BEAKER) (test sevs=847) BILIRUBIN TOTAL (BEAKER) 0.4 mg/dL 0.2-1.2 (test xarb=544) SODIUM (BEAKER) (test 130 meq/L 136-145 hxux=417) POTASSIUM (BEAKER) (test 4.1 meq/L 3.5-5.1 jsni=789) CHLORIDE (BEAKER) (test 98 meq/L 98-107 rbfz=984) CO2 (BEAKER) (test 24 meq/L 22-29 pfaa=775) BLOOD UREA NITROGEN 10 mg/dL 7-21 (BEAKER) (test rvkr=374) CREATININE (BEAKER) (test 0.90 mg/dL 0.57-1.25 wqqj=340) GLUCOSE RANDOM (BEAKER) 103 mg/dL 70-105 (test zqha=704) CALCIUM (BEAKER) (test 8.3 mg/dL 8.4-10.2 gemu=980) AST (SGOT) (BEAKER) (test 26 U/L 5-34 njoi=532) ALT (SGPT) (BEAKER) (test 24 U/L 6-55 foho=365) EGFR (BEAKER) (test 81 mL/min/1.73 sq m ESTIMATED GFR IS NOT idub=3167) ACCURATE CREATININE CLEARANCE IN PREDICTING GLOMERULAR FILTRATION RATE. ESTIMATED GFR IS NOT APPLICABLE FOR DIALYSIS PATIENTS. [id number] 03:38:00 Test Item Value Reference Range Comments PARTIAL THROMBOPLASTIN TIME (BEAKER) (test 42.8 seconds 22.5-36.0 fqxv=391) PROTHROMBIN [id number] 03:37:00 Test Item Value Reference Range Comments PROTIME (BEAKER) (test isly=650) 15.0 seconds 11.9-14.2 INR (BEAKER) (test ohxc=908) 1.2 <=5.9 Effective 10/24/2018: PT Reference Range ChangeNew: 11.9-14.2 Previous: 11.7- 14.7RECOMMENDED COUMADIN/WARFARIN INR THERAPY RANGESSTANDARD DOSE: 2.0-3.0 Includes: PROPHYLAXIS for venous thrombosis, systemic embolization; TREATMENT for venous thrombosis and/or pulmonary embolus.HIGH RISK: Target INR is2.5-3.5 for patients wiht mechanical heart valves.CBC W/PLT COUNT & AUTO [id number] 03:34:00 Test Item Value Reference Range Comments WHITE BLOOD CELL COUNT (BEAKER) (test njnr=265) 11.9 K/ L 3.5-10.5 RED BLOOD CELL COUNT (BEAKER) (test wezj=682) 3.31 M/ L 4.63-6.08 HEMOGLOBIN (BEAKER) (test wwsg=407) 9.7 GM/DL 13.7-17.5 HEMATOCRIT (BEAKER) (test wbmc=139) 29.6 % 40.1-51.0 MEAN CORPUSCULAR VOLUME (BEAKER) (test zrjj=417) 89.4 fL 79.0-92.2 MEAN CORPUSCULAR HEMOGLOBIN (BEAKER) (test 29.3 pg 25.7-32.2 oryj=224) MEAN CORPUSCULAR HEMOGLOBIN CONC (BEAKER) (test 32.8 GM/DL 32.3-36.5 foam=243) RED CELL DISTRIBUTION WIDTH (BEAKER) (test 14.7 % 11.6-14.4 tgor=894) PLATELET COUNT (BEAKER) (test zzlx=296) 302 K/CU MM 150-450 MEAN PLATELET VOLUME (BEAKER) (test fxai=456) 9.0 fL 9.4-12.4 NUCLEATED RED BLOOD CELLS (BEAKER) (test 0 /100 WBC 0-0 rehh=556) NEUTROPHILS RELATIVE PERCENT (BEAKER) (test 85 % sgeb=302) LYMPHOCYTES RELATIVE PERCENT (BEAKER) (test 7 % btep=625) MONOCYTES RELATIVE PERCENT (BEAKER) (test 7 % aefe=392) EOSINOPHILS RELATIVE PERCENT (BEAKER) (test 1 % fcmb=977) BASOPHILS RELATIVE PERCENT (BEAKER) (test 0 % inhj=138) NEUTROPHILS ABSOLUTE COUNT (BEAKER) (test 10.05 K/ L 1.78-5.38 prrh=529) LYMPHOCYTES ABSOLUTE COUNT (BEAKER) (test 0.79 K/ L 1.32-3.57 fprv=468) MONOCYTES ABSOLUTE COUNT (BEAKER) (test 0.81 K/ L 0.30-0.82 vstz=985) EOSINOPHILS ABSOLUTE COUNT (BEAKER) (test 0.13 K/ L 0.04-0.54 kiik=836) BASOPHILS ABSOLUTE COUNT (BEAKER) (test 0.02 K/ L 0.01-0.08 sijl=148) IMMATURE GRANULOCYTES-RELATIVE PERCENT (BEAKER) 1 % 0-1 (test gsjk=8876)
[2019-05-23] MEDS ORDERED: MORPHINE 2 MG/ML SYR ONE ×2 (08:36→12:46)
[2019-05-23] MEDS ORDERED: NA CHLORIDE 0.9% 500 ML ONE (08:42)
--- NOTE | 2019-05-23 09:15 | RAD REPORT ---
EXAM DESCRIPTION: CT - CTHCSPWOC - 05/23/2019 9:00 am CLINICAL HISTORY: Trauma, head and neck injury. FALL INJURY COMPARISON: Head C Spine Mpr Wo Con dated 02/01/2019; Chest Abdomen Pelvis W Cont dated 11/14/2018 TECHNIQUE: Axial 5 mm thick images of the head were obtained. Axial 2 mm thick images of the cervical spine were obtained with sagittal and coronal reconstruction images generated and reviewed. All CT scans are performed using dose optimization technique as appropriate and may include automated exposure control or mA/KV adjustment according to patient size. FINDINGS: CT HEAD WITHOUT CONTRAST: No acute hemorrhage, hydrocephalus or extra-axial collection is identified.Advanced generalized brain atrophy is present with moderate periventricular and deep white matter chronic microvascular ischemi c changes.No areas of brain edema or midline shift. The paranasal sinuses and mastoids are clear.Left sided craniotomy changes. CT CERVICAL SPINE WITHOUT CONTRAST: No fracture or subluxation.Fusion hardware is present spanning C5-7.No prevertebral soft tissues swel ling is identified. Mild multilevel cervical degenerative changes are present. Prominent left-sided f acet hypertrophy. Upper lung dunn are emphysematous. Evidence of mediastinal lymphadenopathy seen, in the incompletely assessed. The largest is in the tracheoesophageal groove measuring 17 mm. IMPRESSION: No acute intracranial or cervical spine findings.
--- NOTE | 2019-05-23 09:28 | RAD REPORT ---
EXAM DESCRIPTION: RAD - Knee Left 3 View - 05/23/2019 9:01 am CLINICAL HISTORY: PAIN COMPARISON: No comparisons FINDINGS: Severe osteoarthritis is present with [id number]. No fracture clearly seen. No joint eff usion.
[2019-05-23 09:39] LABS: Absolute Lymphocytes (CBC) 0.4 K/uL (0.7-4.9); Basophils % 0.3 % (0-1.3); Hematocrit 35.6 % (39.6-49.0); Lymphocytes % 3.1 % (15.3-44.8); MPV 7.6 fL (7.6-11.3); RBC Red Blood Cell Count 4.15 M/uL (4.33-5.43)
[2019-05-23 09:40] LABS: BUN Blood Urea Nitrogen 10 mg/dL (7-18); Bicarbonate 26 mmol/L (21-32); Glucose Level 127 mg/dL (74-106); Potassium 3.5 mmol/L (3.5-5.1); Sodium Level 132 mmol/L (136-145)
--- NOTE | 2019-05-23 09:54 | RAD REPORT ---
EXAM DESCRIPTION: RAD - Pelvis - 05/23/2019 9:01 am CLINICAL HISTORY: FALL COMPARISON: No comparisons FINDINGS: Degenerative changes are present in both hips. No acute fracture or dislocation seen. No A VN.
--- NOTE | 2019-05-23 09:57 | RAD REPORT ---
EXAM DESCRIPTION: RAD - Hip Left 2 View - 05/23/2019 9:01 am CLINICAL HISTORY: PAIN Fall, pain COMPARISON: No comparisons FINDINGS: Mild arthritic changes are present. No acute fracture or dislocation. No aggressive marrow lesion.
--- NOTE | 2019-05-23 09:59 | RAD REPORT ---
EXAM DESCRIPTION: RAD - Chest Single View - 05/23/2019 9:01 am CLINICAL HISTORY: FALL Chest pain. COMPARISON: Chest Pa And Lat (2 Views) dated 12/03/2018 FINDINGS: Portable technique limits examination quality. Emphysematous changes are present. Patchy opacity is seen in the right hilar region suspicious/pneumo tamika. The heart is normal in size. No displaced fractures.Cervical hardware plate.
--- NOTE | 2019-05-23 11:02 | RAD REPORT ---
EXAM DESCRIPTION: CT - Abdomen Pelvis W Contrast - 05/23/2019 10:28 am CLINICAL HISTORY: NEPHROSTOMY TUBE DISLODGEMENT, abdominal pain, history of colon cancer, history of prostate cancer COMPARISON: CT study April 18, 2019 TECHNIQUE: Biphasic, helical CT imaging of the abdomen and pelvis was performed following 100 ml non -ionic IV contrast. No oral contrast administered. All CT scans are performed using dose optimization technique as appropriate and may include automated exposure control or mA/KV adjustment according to patient size. FINDINGS: Right base atelectasis changes are present progressive from the prior study. There also ar e increased interstitial and alveolar opacities in the posterior gutter on the right. Right lung fiel d findings are not fully assessed. No progressive left lung base finding. Right base findings are pot entially pneumonia if there are matching clinical findings. No pericardial effusion. The abutting 11 millimeter and 8 millimeter lymph nodes are present in the right side pericardial fat. These are amanda lar to comparison. Liver is grossly abnormal. There are multiple variably sized low-density masses in the liver parenchy ma. Size of the lesions has progressed since April 18. Spleen and pancreas are normal. Gallbladder and biliary tree are also without suspicious finding. Gal lstones can be occult on CT imaging. Bilateral renal function is present. Right renal function may be slightly delayed compared to the lef t. Differential is not substantial and the pattern is not substantially different from April 18 im aging. Significant left-sided hydronephrosis present with proximal hydroureter. The degree of dilatat ion on the left has improved. There is questionable mass or debris within the distal left ureter that is apparently nonobstructive. Patient has more pronounced right-sided hydronephrosis. Degree of dila tation is not substantially different from March. Since the prior study there has been placement a left ureteral stent as well as placement of a right percutaneous nephrostomy tube. There is linkage or coupling with of the stent they are renal pyramid posterior mid right kidney. There still appear t o be open side ports in the ureteral stent within the lumen of the dilated right collecting system. N o prior imaging is available to know if he percutaneous stent an ureteral stent have been dislodged o r displaced in position. The stranding around the right kidney and right collecting system has improv ed. Pyelonephritis is not suspected. No acute renal parenchymal mass lesion. Bladder is mostly contracted. The Noe catheter has been removed since the prior study. Very little urine is present within the lumen. The stent is in the lower right side of the bladder which has a i rregular lobulated contour from mass invasion. The lobulated bladder mass appearance is progressive. Prostate gland appears enlarged compared to prior imaging. No adrenal abnormalities. No gastric wall thickening. No acute small bowel finding. No acute colon finding down to the mid sigm oid level. Distal sigmoid and rectum shows thickened irregular and nodular ortega of the colon. This i s a progressive but not new pattern compared to prior imaging. There is extensive malignant lymphaden opathy in the fat surrounding the rectum and distal sigmoid colon. Worsening internal and external il iac chain lymphadenopathy noted. There is progressive inguinal lymphadenopathy. No free air, free fluid or pneumatosis. Sclerotic changes at the left-side lesser trochanter with bone loss similar to comparison. Underlying degenerative changes are present along with disc disease. No progressive new bony metastatic process . Left-side blastic or sclerotic changes in the T11 are stable. IMPRESSION: A right-sided percutaneous nephrostomy tube is in place coupled or linked to a right-amria isabel e ureteral catheter that has a pigtail in the lower right side of the bladder. The drainage tubes are linked near a pyramid or cortex of the posterior mid right kidney. No prior imaging of the each vasiliy ce to establish baseline positioning. Left-sided hydronephrosis has improved. Right-sided hydronephrosis has not changed from April 18 imaging. There still appear to be some dr hood holes in the ureteral stent but are positioned within the dilated right collecting system. Right renal function is slightly asymmetric relative to the left. This pattern has not change from No vember imaging suggesting there is still drainage of the right kidney. Worsening malignancy and metastatic changes. The mass lesions that involves the distal colon, prostat e gland and bladder are progressive. Abdominal, inguinal and peritoneal lymphadenopathy is progressiv e. Metastatic liver lesions are progressive in size and number. Progressive opacification in the right base that could be atelectasis, superimposed pneumonia or a co mbination.
--- NOTE | 2019-05-23 12:09 | EDPHYS ---
Physician Documentation [facility] Name: Ricki Waterman Age: 83 yrs Sex: Male : 1935 Arrival Date: 05/23/2019 Time: 08:08 Bed 19 Private MD: ED Physician Timothy Segal HPI: 05/23 08:33 This 83 yrs old Male presents to ER via EMS with complaints of pulled out la1 nephrostomy tube after fall. 08:33 PT HAD A FALL OUT OF B[facility] AT [facility] AND DISLODGED HIS NEPHROSTOMY TUBE la1 ON THE LEFT. ALSO HAVING PAIN IN LEFT HIP AND KNEE.. Onset: The symptoms/episode began/occurred this morning. Severity of symptoms: At their worst the symptoms were moderate. The patient has not experienced similar symptoms in the past. Historical: - Allergies: 08:13 Codeine; em 08:13 Tetanus Vaccines \T\ Toxoid; em - Home Meds: 08:13 Fentanyl Patch Topical [Active]; Flomax 0.4 mg Oral cp24 1 cap once daily [Active]; em Hydrocodone [Active]; Tramadol Oral [Active]; - PMHx: 08:13 colon cancer; CVA; subdural hematoma; Prostate Cancer; em - PSHx: 08:18 wilmer. nephrostomy tube; em - Immunization history:: Last tetanus immunization: not immunized for medical reasons, Flu vaccine is up to date. - Social history:: Smoking status: Patient/guardian denies using tobacco. - Ebola Screening: : Patient negative for fever greater than or equal to 101.5 degrees Fahrenheit, and additional compatible Ebola Virus Disease symptoms Patient denies exposure to infectious person Patient denies travel to an Ebola-affected area in the 21 days before illness onset No symptoms or risks identified at this time. ROS: 08:34 Constitutional: Negative for fever, chills, and weight loss, Eyes: Negative for injury, la1 pain, redness, and discharge, ENT: ABRASION TO UPPER LIP Neck: Negative for injury, pain, and swelling, Cardiovascular: Negative for chest pain, palpitations, and edema, Respiratory: Negative for shortness of breath, cough, wheezing, and pleuritic chest pain, Abdomen/GI: Negative for abdominal pain, nausea, vomiting, diarrhea, and constipation, Back: Negative for injury and pain, : DISLODGEMENT OF LEFT NEPHROSTOMY TUBE, RIGHT NEPHROSTOMY TUBE STILL INTACT MS/Extremity: + FOR LEFT HIP AND KNEE PAIN Neuro: Negative for headache, weakness, numbness, tingling, and seizure. Exam: 08:36 Constitutional: This is a well developed, well nourished patient who is awake, alert, la1 and in no acute distress. Head/Face: Normocephalic, atraumatic. Eyes: Pupils equal round and reactive to light, extra-ocular motions intact. Lids and lashes normal. Conjunctiva and sclera are non-icteric and not injected. Periorbital areas with no swelling, redness, or edema. ENT: Nares patent. No nasal discharge, no septal abnormalities noted. Tympanic membranes are normal and external auditory canals are clear. Oropharynx with no redness, swelling, or masses, exudates, or evidence of obstruction, uvula midline. Mucous membranes moist. Neck: Trachea midline Supple, full range of motion without nuchal rigidity, or vertebral point tenderness. No Meningismus. Chest/axilla: Normal chest wall appearance and motion. Nontender with no deformity. No lesions are appreciated. Cardiovascular: Regular rate and rhythm with a normal S1 and S2. No gallops, murmurs, or rubs. Normal PMI, no JVD. No pulse deficits. Respiratory: Lungs have equal breath sounds bilaterally, clear to auscultation. No rales, rhonchi or wheezes noted. No increased work of breathing, no retractions or nasal flaring. Abdomen/GI: Soft, non-tender, with normal bowel sounds. No distension No guarding or rebound. No evidence of tenderness throughout. Back: No spinal tenderness. No costovertebral tenderness. Full range of motion. 08:36 MS/ Extremity: Pulses equal, no cyanosis. Neurovascular intact. Full, normal range of motion. Neuro: Awake and alert, GCS 15, oriented to person, place, time, and situation. Normal gait. 08:36 : CVA tenderness, is absent, NEPHROSTOMY TUBE IN LEFT IS DISLODGED COMPLETELY, RIGHT SIDED TUBE STILL INTACT. LEFT NEPHROSTOMY SITE WITH CONTROLLED BLEEDING.. Vital Signs: 08:18 BP 154 / 85; Pulse 125; Resp 18; Temp 98.5(O); Pulse Ox 92% on R/A; Pain 9/10; em 09:48 BP 143 / 80; Pulse 97; Resp 20; Pulse Ox 95% on R/A; Pain 6/10; em 11:05 BP 153 / 72; Pulse 92; Resp 16; Pulse Ox 96% on R/A; em 12:52 BP 157 / 78; Pulse 115; Resp 18; Temp 99.6(O); Pulse Ox 94% on R/A; Pain 6/10; em MDM: 08:11 Patient medically screened. la1 12:04 Data reviewed: vital signs, nurses notes, EMS record, lab test result(s), EKG, la1 radiologic studies, I have discussed the patient's presentation/case with the attending Emergency Department Physician; and as a result, I will admit patient. Data interpreted: Pulse oximetry: on room air is 96 %. Interpretation: normal. Counseling: I had a detailed discussion with the patient and/or guardian regarding: the historical points, exam findings, and any diagnostic results supporting the discharge/admit diagnosis, lab results, radiology results, the need to transfer to another facility, [facility] does not immediately have the required specialist. Other consultation: Facility A, was alerted at 12:04, Spoke with Dr. Mike at [facility] who accepted pt . 05/23 08:25 Order name: Basic Metabolic Panel; Complete Time: 09:45 ky05/23 08:25 Order name: CBC with Diff la05/23 08:25 Order name: XRAY Chest (1 view); Complete Time: 11:07 05/23 08:25 Order name: Type And Screen; Complete Time: 11:07 ky05/23 09:54 Order name: CBC Smear Scan EDIL 05/23 10:22 Order name: ABO/RH no charge; Complete Time: 11:07 EDIL 05/23 08:25 Order name: CT Head C Spine; Complete Time: 09:45 la05/23 08:25 Order name: Labs collected and sent; Complete Time: 09:29 la05/23 08:25 Order name: Pelvis XRAY; Complete Time: 11:07 la05/23 08:25 Order name: Knee Left 3 View XRAY; Complete Time: 09:45 la05/23 08:44 Order name: Hip Left 2 View XRAY; Complete Time: 11:07 la1 05/23 09:45 Order name: CT Abd/Pelvis - IV Contrast Only; Complete Time: 11: la1 EC:01 Rate is 124 beats/min. Rhythm is regular. QRS Inman is Normal. PA interval is normal. la1 QRS interval is normal. QT interval is prolonged. T waves are Inverted in lead aVR. Clinical impression: NSR w/ Non-specific ST/T Changes. Interpreted by me. Reviewed by me. Administered Medications: 09:15 Drug: NS 0.9% 500 ml Route: IV; Rate: bolus; Site: left wrist; em 09:51 Follow up: IV Status: Completed infusion; IV Intake: 500ml em 09:16 Drug: morphine 2 mg Route: IVP; Site: left wrist; iw 09:51 Follow up: Response: No adverse reaction; Pain is decreased em 12:51 Drug: morphine 2 mg Route: IVP; Site: left wrist; em 13:28 Follow up: Response: No adverse reaction; Pain is decreased em Disposition: 17:39 Co-signature as Attending Physician, Timothy Segal MD. rn Disposition: 05/23/19 12:07 Transfer ordered to [facility]. Diagnosis are Displacement of Left Nephrostomy Tube, Fall From Bed. - Reason for transfer: Higher level of care. - [facility] - Condition is Stable. - Problem is new. - Symptoms are unchanged. Signatures: Dispatcher [employer] EDIL Mele Lewis, PRODUCTION PACKAGER PRODUCTION PACKAGER em Jonelle Rosas RN RN iw Nieto, Roman, MD MD rn Attema, Lee, AUTOS DISASSEMBLER-C AUTOS DISASSEMBLER-Cla1 Corrections: (The following items were deleted from the chart) 08:47 08:34 Constitutional: Negative for fever, chills, and weight loss, Eyes: Negative for la1 injury, pain, redness, and discharge, ENT: ABRASION TO UPPER LIP Neck: Negative for injury, pain, and swelling, Cardiovascular: Negative for chest pain, palpitations, and edema, Respiratory: Negative for shortness of breath, cough, wheezing, and pleuritic chest pain, Abdomen/GI: Negative for abdominal pain, nausea, vomiting, diarrhea, and constipation, Back: Negative for injury and pain, : DISLODGEMENT OF LEFT NEPHROSTOMY TUBE, RIGHT NEPHROSTOMY TUBE STILL INTACT MS/Extremity: Negative for injury and deformity, Neuro: Negative for headache, weakness, numbness, tingling, and seizure, la1 13:30 12:07 05/23/2019 12:07 Transfer ordered to [facility]. Diagnosis is em Displacement of Left Nephrostomy Tube; Fall From Bed. Reason for transfer: Higher level of care. Accepting physician is . Condition is Stable. Problem is new. Symptoms are unchanged. la1
--- NOTE | 2019-05-23 12:09 | ER ---
Nurse's Notes [facility] Name: Ricki Waterman Age: 83 yrs Sex: Male : 1935 Arrival Date: 05/23/2019 Time: 08:08 Bed 19 Private MD: Diagnosis: Displacement of Left Nephrostomy Tube;Fall From Bed Presentation: 05/23 08:09 Presenting complaint: EMS states: called to longterm for fall and pulled em nephrostomy tube, reports left knee pain. Transition of care: patient was not received from another setting of care. Onset of symptoms was May 23, 2019. Risk Assessment: Do you want to hurt yourself or someone else? Patient reports no desire to harm self or others. Initial Sepsis Screen: Does the patient meet any 2 criteria? HR > 90 bpm. No. Patient's initial sepsis screen is negative. Does the patient have a suspected source of infection? No. Patient's initial sepsis screen is negative. Care prior to arrival: None. 08:09 Method Of Arrival: EMS: [facility] em 08:37 Acuity: USAMA 3 iw Historical: - Allergies: 08:13 Codeine; em 08:13 Tetanus Vaccines \T\ Toxoid; em - Home Meds: 08:13 Fentanyl Patch Topical [Active]; Flomax 0.4 mg Oral cp24 1 cap once daily [Active]; em Hydrocodone [Active]; Tramadol Oral [Active]; - PMHx: 08:13 colon cancer; CVA; subdural hematoma; Prostate Cancer; em - PSHx: 08:18 wilmer. nephrostomy tube; em - Immunization history:: Last tetanus immunization: not immunized for medical reasons, Flu vaccine is up to date. - Social history:: Smoking status: Patient/guardian denies using tobacco. - Ebola Screening: : Patient negative for fever greater than or equal to 101.5 degrees Fahrenheit, and additional compatible Ebola Virus Disease symptoms Patient denies exposure to infectious person Patient denies travel to an Ebola-affected area in the 21 days before illness onset No symptoms or risks identified at this time. Screenin:18 Abuse screen: Denies threats or abuse. no apparent signs noted. Nutritional screening: em No deficits noted. Tuberculosis screening: No symptoms or risk factors identified. Fall Risk Fall in past 12 months (25 points). IV access (20 points). Mental Status- Oriented to own ability (0 pts). Total Orozco Fall Scale indicates High Risk Score (45 or more points). Side Rails Up X 2 Placed Close to Nursing Station. Assessment: 08:18 General: Appears in no apparent distress. comfortable, Behavior is calm, cooperative, em appropriate for age. Pain: Complains of pain in left knee. Neuro: Level of Consciousness is awake, alert, obeys commands, Oriented to person, place, time, situation, Denies headache. Cardiovascular: Capillary refill < 3 seconds Patient's skin is warm and dry. Respiratory: Airway is patent Respiratory effort is even, unlabored, Respiratory pattern is regular, symmetrical. GI: Abdomen is flat, Bowel sounds present X 4 quads. Abd is soft and non tender X 4 quads. : Urine is clear, right nephrostomy tube in place, left nephrostomy tube removed. Derm: Skin is intact, is thin, Skin is dry, Skin is pink, Skin temperature is warm. Musculoskeletal: Capillary refill < 3 seconds, Range of motion: limited in left knee. 09:45 Reassessment: Patient appears in no apparent distress at this time. Patient and/or em family updated on plan of care and expected duration. Pain level reassessed. Patient is alert, oriented x 3, equal unlabored respirations, skin warm/dry/pink. Patient states feeling better. 11:04 Reassessment: Patient appears in no apparent distress at this time. Patient and/or em family updated on plan of care and expected duration. Pain level reassessed. Patient is alert, oriented x 3, equal unlabored respirations, skin warm/dry/pink. 12:30 Reassessment: report given to MAXIMO De La Rosa at [facility], pending transportation. em 12:40 Reassessment: Patient appears in no apparent distress at this time. reports low back em pain, rates 6/10. 13:27 Reassessment: Patient appears in no apparent distress at this time. Patient and/or em family updated on plan of care and expected duration. Pain level reassessed. Patient is alert, oriented x 3, equal unlabored respirations, skin warm/dry/pink. report given to [facility] Patient states feeling better. Vital Signs: 08:18 BP 154 / 85; Pulse 125; Resp 18; Temp 98.5(O); Pulse Ox 92% on R/A; Pain 9/10; em 09:48 BP 143 / 80; Pulse 97; Resp 20; Pulse Ox 95% on R/A; Pain 6/10; em 11:05 BP 153 / 72; Pulse 92; Resp 16; Pulse Ox 96% on R/A; em 12:52 BP 157 / 78; Pulse 115; Resp 18; Temp 99.6(O); Pulse Ox 94% on R/A; Pain 6/10; em ED Course: 08:08 Patient arrived in ED. em 08:11 Arcadio Sauceda, LEN is PHCP. la1 08:11 Timothy Segal MD is Attending Physician. la1 08:18 Arm band placed on. em 08:18 Patient has correct armband on for positive identification. Bed in low position. Call em light in reach. Side rails up X2. Pulse ox on. NIBP on. 08:24 EKG done, by criminalist technician. reviewed by Arcadio HARRINGTON. at1 08:37 Triage completed. iw 08:37 Mele Lewis LVN is Primary Nurse. em 08:50 No provider procedures requiring assistance completed. Initial lab(s) drawn, by me, em sent to lab. T\T\S collected, blood band applied to patient. Inserted saline lock: 22 gauge in left wrist, using aseptic technique. Blood collected. 09:01 CT Head C Spine In Process Unspecified. EDMS 09:03 XRAY Chest (1 view) In Process Unspecified. EDMS 09:03 Pelvis XRAY In Process Unspecified. EDMS 09:03 Knee Left 3 View XRAY In Process Unspecified. EDMS 09:03 Hip Left 2 View XRAY In Process Unspecified. EDMS 10:29 CT Abd/Pelvis - IV Contrast Only In Process Unspecified. EDMS 11:25 Transfer initiated with Fred from the [facility] Transfer Center. eb 11:[address] Mike the hospitalist ammunition specialist for [facility] with Arcadio DE LA TORRE for patient transfer consultation. 12:00 administrative approval given by Fred Friend / patient has been accepted to [facility] 16 tower bed 1634 / Dr. Mike has accepted the patient in transfer/ report to be called to [phone]. 13:27 Patient transferred, IV remains in place. em Administered Medications: 09:15 Drug: NS 0.9% 500 ml Route: IV; Rate: bolus; Site: left wrist; em 09:51 Follow up: IV Status: Completed infusion; IV Intake: 500ml em 09:16 Drug: morphine 2 mg Route: IVP; Site: left wrist; iw 09:51 Follow up: Response: No adverse reaction; Pain is decreased em 12:51 Drug: morphine 2 mg Route: IVP; Site: left wrist; em 13:28 Follow up: Response: No adverse reaction; Pain is decreased em Intake: 09:51 IV: 500ml; Total: 500ml. em Outcome: 12:07 ER care complete, transfer ordered by MD. tucker 13:27 [place]red by ground [place] [facility] [facility] [place]. em X-rays sent w/ patient. 13:27 Condition: good 13:27 Instructed on the need for transfer, Demonstrated understanding of instructions. 13:30 Patient left the ED. em Signatures: Dispatcher [employer] EDMS Mele Lewis, SLIP COVER ESTIMATOR SLIP COVER ESTIMATOR em Jonelle Rosas, MAXIMO RN Kandy Luo, airplane dispatch clerk EKG Tat1 Arcadio Sauceda FNP-Waqar PRODUCT SAFETY ADMINISTRATOR-Yaritza1 Akila Mcgill Corrections: (The following items were deleted from the chart) 09:48 08:18 BP 154 / 85; Pulse 125bpm; Resp 18bpm; Pulse Ox 92% RA; Temp 98.5F Oral; em em 12:10 11:25 Transfer initiated with Penelope from the [facility] Transfer Center. manda holman
[2019-05-23 12:50] LABS: Anisocytosis 1+; Blood Morphology Comment NOTED (NOT SEEN); Platelet Estimate ADEQ; Urine White Blood Cell Casts OK
[2019-05-23 13:42] VITALS: BP 157/78; TEMP 99.6; O2SAT 94
--- NOTE | 2019-05-24 13:51 | EKG ---
Test Date: 2019-05-23 Test Time: 08:15:12 Melt Room Operator: KATTY MEASUREMENT RESULTS: Intervals: Rate: 124 IL: 152 QRSD: 88 QT: 324 QTc: 465 Kaleva: P: 88 IL: 152 QRS: 22 T: 37 INTERPRETIVE STATEMENTS: Sinus tachycardia with premature supraventricular complexes Possible Inferior infarct, age undetermined Abnormal ECG Compared to ECG 04/18/2019 16:42:55 Atrial premature complex(es) now present Myocardial infarct finding now present Electronically Signed On 05-24-19 13:47:05 BELT TENDER by Chase Pearce
== END 2019-05-23 13:30 | disposition short-term general hospital (02) ==
LOC: ER 08:05
DX: T83.022A Displacement of nephrostomy catheter, initial encounter (principal); M25.562 Pain in left knee; M25.552 Pain in left hip; W06.XXXA Fall from bed, initial encounter; Y93.9 Activity, unspecified; Y92.122 Bedroom in nursing home as the place of occurrence of the external cause; Z85.038 Personal history of other malignant neoplasm of large intestine; Z85.46 Personal history of malignant neoplasm of prostate; Z88.5 Allergy status to narcotic agent; Z88.7 Allergy status to serum and vaccine
CPT/HCPCS: 96361; 93005; 85025; 80048; 36415; 86900; 86850; 86901; 70450; 72125; 74177; 71045; 72170; 73502; 73562; 96374; 99285; Q9967; J2270 ×2; J7040